=== PATIENT | female | born 1985 | race Caucasian/White ===

== ENCOUNTER 2017-11-04 09:45 | Emergency (ER) | payer OTHER, SELFPAY ==
[2017-11-04 09:46] VITALS: BP 135/80; PULSE 100; RESP 17; TEMP 37.2; O2SAT 99; BMI 35.2
--- NOTE | 2017-11-04 10:06 | CT_ITS ---
STUDY: CT ABDOMEN AND PELVIS WITHOUT CONTRAST REASON FOR EXAM: Female, 32 years old. Left upper quadrant pain. Epigastric pain. RADIATION DOSAGE (If Supplied By Facility): CTDIvol = ( 20.11 ) mGy, DLP = ( 1045.14 ) mGycm TECHNIQUE: Transaxial images were obtained from the dome of the diaphragm to the symphysis pubis with oral contrast, and without intravenous contrast. Sagittal and coronal images were reconstructed. Individualized dose optimization techniques were used for this CT. COMPARISON: None. FINDINGS: Mild degree of increased markings at the right lung base suggestive of mild basilar atelectasis. The visualized portions of the heart are within normal limits. Normal liver. Normal gallbladder and extrahepatic biliary system. Normal spleen. Normal pancreas. Normal bilateral adrenal glands. Normal right kidney. Normal left kidney. Normal visualized stomach. Mild degree of the circumferential wall thickening of the terminal ileum. Terminal ileitis should be ruled out. Normal colon. The appendix is visualized and appears normal. Normal abdominal aorta. Normal inferior vena cava. Normal retroperitoneum. Normal urinary bladder. Distended urinary bladder. Small amount of free fluid in the cul-de-sac. Small follicles are seen in the ovaries. Normal abdominal wall. Disc space narrowing and subchondral sclerosis at the L4-L5 level. CT/Abdomen/Pel W ORAL Cont Only IMPRESSION: Distended urinary bladder. Circumferential wall thickening of the terminal ileum. Terminal ileitis should be removed. Small amount of free fluid in the cul-de-sac. Electronically Signed: Rafat Modi MD at 12:23 EST Tel [phone], Service support ,
--- NOTE | 2017-11-04 10:10 | ED.VISSUMM ---
- ER Visit Summary Date of Service: 11/04/17 Chief Complaint: [] Abdominal pain History of Present Illness: The patient is a 32 F [] complaining of intermittent abdominal pain in the epigastric area. She reports she was diagnosed clinically with a gastric ulcer and started on Pepcid and Carafate. She reports this has intermittently helped her symptoms however she reports today her symptoms started with epigastric pain radiating to her left flank. She denies dark/tarry stools or bright red blood per rectum. She denies nausea and vomiting. No other complaints at this time. She denies the possibility of . Physical Examination: [] Afebrile, vital signs stable. Morbidly obese female in no acute distress. Cardiovascular exam is regular rate and rhythm. Lungs are clear to auscultation. Abdomen is soft and nontender with no guarding or rebound tenderness. She did localize her previous discomfort to the epigastric and left upper quadrant areas. She does also note some slight left flank discomfort. No lower extremity edema. Remainder of exam is unremarkable. Test Results: [] Labs: CBC, BMP, LFTs, lipase, troponin all within normal limits. CT abdomen/pelvis with oral contrast: Demonstrates circumferential terminal ileitis. Remainder of exam is unremarkable. Emergency Department Course and Treatment: [] Case was discussed with on-call GI specialist who recommended outpatient treatment with Cipro, Flagyl, narcotic analgesic and follow-up with him in the office. Patient was counseled regarding her diagnostic and laboratory findings. She is amenable to outpatient follow-up and treatment. She was given first doses of Cipro, Flagyl, Percocet in the emergency department with prescriptions provided for all of the previously listed plus Phenergan. 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 Disposition: [] Discharge, stable. Impression: [] Abdominal pain Terminal ileitis This note was generated with [employer] dictation software. It may contain incorrect words, spelling, and punctuation that were not noted in review of the chart prior to signing ED Disposition - Plan for ED Patient: Chief Complaint: Abd Pain Referrals: Cray aNgel PA [Primary Care Provider] -
--- NOTE | 2017-11-04 10:14 | ED.DCSUM_ITS ---
- ER Visit Summary Date of Service: 11/04/17 Chief Complaint: [] Abdominal pain History of Present Illness: The patient is a 32 F [] complaining of intermittent abdominal pain in the epigastric area. She reports she was diagnosed clinically with a gastric ulcer and started on Pepcid and Carafate. She reports this has intermittently helped her symptoms however she reports today her symptoms started with epigastric pain radiating to her left flank. She denies dark/tarry stools or bright red blood per rectum. She denies nausea and vomiting. No other complaints at this time. She denies the possibility of . Physical Examination: [] Afebrile, vital signs stable. Morbidly obese female in no acute distress. Cardiovascular exam is regular rate and rhythm. Lungs are clear to auscultation. Abdomen is soft and nontender with no guarding or rebound tenderness. She did localize her previous discomfort to the epigastric and left upper quadrant areas. She does also note some slight left flank discomfort. No lower extremity edema. Remainder of exam is unremarkable. Test Results: [] Labs: CBC, BMP, LFTs, lipase, troponin all within normal limits. CT abdomen/pelvis with oral contrast: Demonstrates circumferential terminal ileitis. Remainder of exam is unremarkable. Emergency Department Course and Treatment: [] Case was discussed with on-call GI specialist who recommended outpatient treatment with Cipro, Flagyl, narcotic analgesic and follow-up with him in the office. Patient was counseled regarding her diagnostic and laboratory findings. She is amenable to outpatient follow-up and treatment. She was given first doses of Cipro, Flagyl, Percocet in the emergency department with prescriptions provided for all of the previously listed plus Phenergan. Treatment Plan: [] Follow-up with account development executive. Disposition: [] Discharge, stable. Impression: [] Abdominal pain Terminal ileitis This note was generated with [employer] dictation software. It may contain incorrect words, spelling, and punctuation that were not noted in review of the chart prior to signing ED Disposition - Plan for ED Patient: Chief Complaint: Abd Pain Referrals: Cary Nagel PA [Primary Care Provider] -
[2017-11-04 10:22] LABS: Absolute Lymphocyte Count 1.89 X10^3/ul (0.83-4.51); Absolute Neutrophil Count 5.1 X10^3/uL (2.0-7.7); Basophil# 0.03 X10^3/uL; Basophil% 0.4 % (0-1); Eosinophil# 0.16 X10^3/uL; Eosinophils% 2.1 % (0-5); Hematocrit 40.1 % (37-47); Hemoglobin 13.5 g/dl (12.0-15.0); Lymphocyte # 1.89 X10^3/ul (4.0); Lymphocyte % 24.5 % (19-41); Mean Corp Hgb Conc 33.7 g/gl (32-36); Mean Corpuscular Hgb 30.4 pg (27.0-32.0); Mean Corpuscular Volume 90.3 fL (81-99); Mean Platelet Vol. 10.3 fl (6.2-12.0); Monocyte% 6.5 % (0-10); Neutrophil # 5.13 X10^3/uL (2.7-7.7); Neutrophil % 66.4 % (47-70); Platelet Count 281 K/mm3 (150-450); RBC Distribution Width CV 12.6 % (11.6-14.6); RBC Distribution Width SD 41.1 fl (35.1-43.9); Red Blood Count 4.44 M/mm3 (4.2-5.4); White Blood Count 7.7 K/mm3 (4.4-11.0)
[2017-11-04 10:25] LABS: POSITIVE COUNT NO; POSITIVE DIFFERENTIAL NO; POSITIVE MORPHOLOGY NO
[2017-11-04] MEDS: 0.9% Normal Saline 1,000 ML 1000 ML IV (10:25)
[2017-11-04 10:39] LABS: AST(SGOT) 14 U/L (15-37); Alanine Aminotransfer ALT/SGPT 36 U/L (13-56); Albumin, Serum 3.9 g/dL (3.2-5.0); Alkaline Phosphatase 81 U/L (45-117); Anion Gap 6 (5-15); BUN 11 mg/dL (7-18); BUN/Creat Ratio 18.4 RATIO (10-20); Calcium,Total 8.8 mg/dL (8.5-10.1); Chloride 106 mmol/L (98-107); EST Glomerular Filtration Rate 123 mL/min (>60); Est Glom Filt Rate - Afr Amer 149 mL/min (>60); Estimated Creatinine Clearance 124.85 ml/min; Globulin 3.8 g/dL (2.2-4.2); Glucose 85 mg/dL (74-106); Lipase 97 U/L (73-393); Potassium 3.8 mmol/L (3.5-5.1); Protein, Total 7.7 g/dL (6.4-8.2); Sodium Level 139 mmol/L (136-145)
[2017-11-04 13:00] VITALS: BP 115/76
--- NOTE | 2017-11-04 13:48 | ED.DEP ---
ED Disposition - Plan for ED Patient: Chief Complaint: Abd Pain Instructions: ED Abdominal Pain Unkn Cause Prescriptions: ProMETHAzine [Phenergan] 25 mg PO Q4H PRN PRN #20 tab PRN Reason: Nausea Oxycodone HCl/Acetaminophen [Percocet 5/325] 1 tab PO Q6H PRN PRN #15 tab PRN Reason: Pain Metronidazole [Flagyl] 500 mg PO Q8H #30 tab Ciprofloxacin [Cipro] 500 mg PO BID #20 tab Referrals: Cary Nagel PA [Primary Care Provider] -
[2017-11-04] MEDS: Ciprofloxacin 500 MG Tablet PO (14:48)
[2017-11-04] MEDS: oxyCODONE 5 MG Tablet PO (14:49)
[2017-11-04 14:53] VITALS: BP 138/74; PULSE 74; RESP 18; O2SAT 99
== END 2017-11-04 14:55 | disposition home or self-care (01) ==
LOC: ED 10:06
PROVIDERS: Emergency Provider Emergency Medicine; Family Provider Physician Assistant; PCP Physician Assistant
DX: R10.13 Epigastric pain (principal); R10.12 Left upper quadrant pain; K50.00 Crohn's disease of small intestine without complications; N80.9 Endometriosis, unspecified; E66.01 Morbid (severe) obesity due to excess calories; Z87.19 Personal history of other diseases of the digestive system; Z72.0 Tobacco use
CPT/HCPCS: 74176; 80053; 83690; 84484; 85025; 96361; 96374; 96375; 99284; J7030; A4216

== ENCOUNTER → 2018-03-22 07:57 | Outpatient (CLI) | payer OTHER, SELFPAY ==
[2018-03-22 09:11] LABS: Absolute Lymphocyte Count 2.31 X10^3/ul (0.83-4.51); Absolute Neutrophil Count 5.5 X10^3/uL (2.0-7.7); Basophil# 0.03 X10^3/uL; Basophil% 0.3 % (0-1); Eosinophil# 0.21 X10^3/uL; Eosinophils% 2.4 % (0-5); Hematocrit 40.4 % (37-47); Hemoglobin 13.5 g/dl (12.0-15.0); Lymphocyte # 2.31 X10^3/ul (4.0); Lymphocyte % 26.4 % (19-41); Mean Corp Hgb Conc 33.4 g/gl (32-36); Mean Corpuscular Hgb 30.2 pg (27.0-32.0); Mean Corpuscular Volume 90.4 fL (81-99); Mean Platelet Vol. 11.1 fl (6.2-12.0); Monocyte# 0.67 X10^3/uL; Monocyte% 7.7 % (0-10); Neutrophil # 5.51 X10^3/uL (2.7-7.7); POSITIVE COUNT NO; POSITIVE DIFFERENTIAL NO; POSITIVE MORPHOLOGY NO; Platelet Count 267 K/mm3 (150-450); RBC Distribution Width CV 12.6 % (11.6-14.6); RBC Distribution Width SD 41.5 fl (35.1-43.9); Red Blood Count 4.47 M/mm3 (4.2-5.4); White Blood Count 8.8 K/mm3 (4.4-11.0)
[2018-03-22 09:53] LABS: ALB/GLOB Ratio 1.1 RATIO (0.9-2.4); AST(SGOT) 16 U/L (15-37); Alanine Aminotransfer ALT/SGPT 36 U/L (13-56); Alkaline Phosphatase 78 U/L (45-117); Anion Gap 9 (5-15); BUN 11 mg/dL (7-18); BUN/Creat Ratio 16.4 RATIO (10-20); Calcium,Total 8.7 mg/dL (8.5-10.1); Chloride 104 mmol/L (98-107); Cholesterol 150 mg/dL (200); Creatinine, Serum 0.67 mg/dL (0.55-1.02); EST Glomerular Filtration Rate 108 mL/min (>60); Est Glom Filt Rate - Afr Amer 130 mL/min (>60); Globulin 3.8 g/dL (2.2-4.2); Glucose 80 mg/dL (74-106); High Density Lipoprotein 39 mg/dL; Potassium 3.8 mmol/L (3.5-5.1); Protein, Total 7.8 g/dL (6.4-8.2); Sodium Level 137 mmol/L (136-145); Thyroid Stim Hormone (TSH) 1.18 uIU/mL (0.358-3.74); Triglycerides 170 mg/dL; Very Low Density Lipoprotein 34 mg/dL (5-40)
== END ==
PROVIDERS: Family Provider Physician Assistant; PCP Physician Assistant; Visit Provider Physician Assistant
DX: E04.9 Nontoxic goiter, unspecified (principal); R00.2 Palpitations; Z13.1 Encounter for screening for diabetes mellitus; Z13.220 Encounter for screening for lipoid disorders
CPT/HCPCS: 36415; 80053; 80061; 84443; 85025

== ENCOUNTER → 2018-03-24 09:07 | Outpatient (CLI) | payer OTHER, SELFPAY | PROVIDERS: Family Provider Physician Assistant; PCP Physician Assistant; Visit Provider Physician Assistant | DX: R00.2 Palpitations (principal) | CPT/HCPCS: 93225; 93226 ==

== ENCOUNTER → 2018-12-22 16:24 | Outpatient (CLI) | payer OTHER, SELFPAY ==
--- NOTE | 2018-12-22 14:30 | US_ITS ---
STUDY: ULTRASOUND OF THE FEMALE PELVIS - COMPLETE REASON FOR EXAM: Female, 33 years old. Pelvic pain TECHNIQUE: Transabdominal and transvaginal (Transvaginal imaging, if present, was performed for enhanced visualization of uterus and endometrium, and posterior adnexal structures). COMPARISON: None. FINDINGS: Uterus anteverted, midline, 7.6 x 4.7 x 4.4 cm. Normal echotexture. Trace fluid within the endocervical canal. Endometrium 12.8 mm, normal echotexture. Slender fluid within the endometrial cavity of the fundus. Fundal endometrial cyst, 37 mm. Simple cystic features. Trace cul-de-sac free fluid. No adnexal free fluid. No adnexal mass or suspicious cyst. Right ovary 20 x 20 x 13 mm, left ovary 46 x 44 x 27 mm, each exhibiting appropriate vascularity, normal echotexture, small physiologic follicles. US/Transvaginal Non- IMPRESSION: Slender fluid within the endometrial canal and endocervical canal. Correlate for vaginal bleeding. Tiny fundal endometrial cyst 3.7 mm. Normal ovaries. Normal uterine myometrium. Electronically Signed: Morgan Monroe MD at 17:28 EDT Tel , Service support ,
--- NOTE | 2018-12-22 16:28 | US_ITS ---
STUDY: ULTRASOUND OF THE FEMALE PELVIS - COMPLETE REASON FOR EXAM: Female, 33 years old. Pelvic pain TECHNIQUE: Transabdominal and transvaginal (Transvaginal imaging, if present, was performed for enhanced visualization of uterus and endometrium, and posterior adnexal structures). COMPARISON: None. FINDINGS: Uterus anteverted, midline, 7.6 x 4.7 x 4.4 cm. Normal echotexture. Trace fluid within the endocervical canal. Endometrium 12.8 mm, normal echotexture. Slender fluid within the endometrial cavity of the fundus. Fundal endometrial cyst, 37 mm. Simple cystic features. Trace cul-de-sac free fluid. No adnexal free fluid. No adnexal mass or suspicious cyst. Right ovary 20 x 20 x 13 mm, left ovary 46 x 44 x 27 mm, each exhibiting appropriate vascularity, normal echotexture, small physiologic follicles. US/Pelvic (Non ) IMPRESSION: Slender fluid within the endometrial canal and endocervical canal. Correlate for vaginal bleeding. Tiny fundal endometrial cyst 3.7 mm. Normal ovaries. Normal uterine myometrium. Electronically Signed: Morgan Monroe MD at 17:28 EDT Tel , Service support ,
== END ==
PROVIDERS: Family Provider Physician Assistant; PCP Physician Assistant; Referring Provider Physician Assistant; Visit Provider Physician Assistant
DX: R10.2 Pelvic and perineal pain (principal)
CPT/HCPCS: 76830; 76856; 93976

== ENCOUNTER → 2020-02-02 09:07 | Outpatient (CLI) | payer OTHER, SELFPAY ==
[2020-02-02 08:33] VITALS: BMI 35.2
[2020-02-02 13:20] LABS: Hemoglobin A1c 5.4 % (3.8-5.6)
[2020-02-02 13:31] LABS: ALB/GLOB Ratio 1.1 RATIO (0.9-2.4); AST(SGOT) 19 U/L (15-37); Alanine Aminotransfer ALT/SGPT 38 U/L (13-56); Albumin, Serum 3.9 g/dL (3.2-5.0); Alkaline Phosphatase 76 U/L (45-117); Anion Gap 7 (5-15); BUN 12 mg/dL (7-18); BUN/Creat Ratio 17.3 RATIO (10-20); Calcium,Total 9.1 mg/dL (8.5-10.1); Chloride 107 mmol/L (98-107); Cholesterol 158 mg/dL (200); Creatinine, Serum 0.69 mg/dL (0.55-1.02); EST Glomerular Filtration Rate 102 mL/min (>60); Est Glom Filt Rate - Afr Amer 124 mL/min (>60); Globulin 3.6 g/dL (2.2-4.2); Glucose 95 mg/dL (74-106); High Density Lipoprotein 41 mg/dL; Potassium 3.8 mmol/L (3.5-5.1); Protein, Total 7.5 g/dL (6.4-8.2); Sodium Level 140 mmol/L (136-145); Thyroid Stim Hormone (TSH) 1.11 uIU/mL (0.358-3.74); Triglycerides 166 mg/dL; Very Low Density Lipoprotein 33 mg/dL (5-40)
[2020-02-05 00:26] LABS: Thyroid Peroxidase AB < 9 IU/mL (0-34)
== END ==
PROVIDERS: PCP Physician Assistant; Referring Provider Internal Medicine Endocrinology, Diabetes & Metabolism; Visit Provider Internal Medicine Endocrinology, Diabetes & Metabolism
DX: E04.9 Nontoxic goiter, unspecified (principal); E28.2 Polycystic ovarian syndrome; R73.09 Other abnormal glucose
CPT/HCPCS: 36415; 80053; 80061; 83036; 84439; 84443; 86376

== ENCOUNTER 2020-03-12 22:37 | Emergency (ER) | payer OTHER, SELFPAY ==
[2020-02-02 08:33] VITALS: BMI 35.2
[2020-03-12 22:37] VITALS: BP 117/94; PULSE 83; RESP 17; TEMP 36.7; O2SAT 97; BMI 34.7
--- NOTE | 2020-03-12 22:54 | ED.VIS.GEN ---
History of Present Illness Chief Complaint: Abd Pain Informant: Patient, Family Onset: Today Context: Gradual Onset Timing: Waxes and wanes Current Severity: Moderate Maximum Severity: Moderate Narrative: Patient presents secondary left-sided abdominal pain. She states she initially thought her reflux was acting up but now has pain throughout the left side. She states the pain feels like her prior diverticulitis. She has not had fever or chills. No urinary symptoms. - Past Medical History (1) Diverticulitis Status: Resolved (2) Anxiety Status: Chronic (3) Endometriosis Status: Chronic (4) GERD without esophagitis Status: Chronic (5) Hypothyroidism Status: Chronic (6) PCOS (polycystic ovarian syndrome) Status: Chronic Past Medical History - Allergies and Home Meds Allergies/Adverse Reactions: Allergies sulfamethoxazole [From ] Allergy (Verified 03/12/20 22:40) Hives trimethoprim [From ] Allergy (Verified 03/12/20 22:40) Hives Primary Care Physician: Cary Nagel PA [Primary Care Provider] - Prior records reviewed: Yes Lives: With Family Smoking Status: Current every day smoker Review of Systems General: Denies: Chills, Fever Eyes: Denies: Visual changes - bilaterally ENT: Denies: Bilateral ear pain Cardiovascular: Denies: Chest pain Respiratory: Denies: Dyspnea, Cough Gastrointestinal: Reports: Abdominal pain. Denies: Nausea, Vomiting, Diarrhea Genitourinary: Denies: Dysuria Musculoskeletal: Denies: Extremity Pain Skin: Denies: Rash Neurological: Denies: Headache Hematologic: Denies: Easy bruising Allergy: Denies: Uticaria Physical Exam Vital Signs/Narrative: Vital Signs Temp Pulse Resp BP Pulse Ox 03/12/20 22:37 98.1 F 83 17 117/94 H 97 Inital Vital Signs reviewed: Yes General: Well nourished, Well developed Head: Normocephalic ENT: Moist mucous membranes Neck: Supple Cardiovascular: Regular rate, Regular rhythm Respiratory: No distress, CTA bilaterally Abdomen: Soft, Tender - Mild left-sided tenderness to palpation. No guarding or rebound., Hypoactive bowel sounds Extremities: Nontender Skin: Normal color Neurological: Alert, Oriented x3 Psychological: Normal affect Diagnostic/Tx/Re-eval Impressions Abdomen/Pelvis CT 03/13/20 22:53 IMPRESSION: No acute findings in the abdomen or pelvis. Colon is grossly normal. Limited evaluation of the terminal ileum. Right ovarian cyst compatible with a physiologic cyst. No intra-abdominal free air free fluid collections. Electronically Signed: Torres Hallman MD at 1:20 EDT , Service support , 03/13/20 22:53 Abdomen/Pelvis WITH Contrast [CT] Stat Laboratory Results 03/12/20 03/12/20 03/12/20 23:04 23:04 23:04 WBC 9.6 RBC 4.19 L Hgb 12.7 Hct 38.9 MCV 92.8 MCH 30.3 MCHC 32.6 RDW Std Deviation 42.6 RDW Coeff of Kathy 12.8 Plt Count 270 MPV 10.3 Immature Gran % (Auto) 0.900 Neut % (Auto) 55.6 Lymph % (Auto) 34.1 Rolette % (Auto) 6.9 Eos % (Auto) 2.1 Baso % (Auto) 0.4 Absolute Neuts (auto) 5.3 Absolute Lymphs (auto) 3.27 Nucleated RBC % 0 Sodium 139 Potassium 3.8 Chloride 105 Carbon Dioxide 26.0 Anion Gap 8 BUN 12 Creatinine 0.67 Estim Creat Clear Calc 109.71 Est GFR (MDRD) Af Amer 129 Est GFR (MDRD) Non-Af 107 BUN/Creatinine Ratio 18.0 Glucose 96 Calcium 8.9 Total Bilirubin 0.30 Direct Bilirubin 0.15 AST 14 L ALT 36 Alkaline Phosphatase 80 Total Protein 7.4 Albumin 3.9 Globulin 3.5 Lipase 68 L Serum , Qual NEGATIVE - Medical Decision Making Patient was given morphine and Zofran for pain. On repeat evaluation she is resting comfortably. She is still complaining of burning-like pain in the left upper quadrant. She is now questioning whether she may have an ulcer. She does admit to using ibuprofen. She recently switched to Pepcid instead of Zantac. We will give her a GI cocktail this time and write her for a short course of Protonix. She will use Tylenol instead of ibuprofen at home. She is known to Dr. Black and will follow-up with him as needed. ED Disposition - Plan for ED Patient: Disposition: Home or Assisted Living Diagnosis: Abdominal pain Instructions: ED Abdominal Pain Unkn Cause Fem Prescriptions: Pantoprazole Sodium [Protonix] 40 mg PO DAILY #10 tab Transmission Status: Pending to [id number] Referrals: Cary Nagel PA [Primary Care Provider] - Garry Black MD [NON-STAFF] - As Needed
[2020-03-12] MEDS: 0.9% Normal Saline 1,000 ML 150 ML IV (23:09)
[2020-03-12] MEDS: Ondansetron 4 MG/2 ML Vial IV (23:10)
[2020-03-12] MEDS: Morphine 4 MG/ML Syringe IV (23:10)
[2020-03-12 23:23] LABS: Internal QC Validated? YES +Cl - CLEAR BKGD; Pregnancy, Serum, hCG Quali. NEGATIVE Negative
[2020-03-12 23:27] LABS: AST(SGOT) 14 U/L (15-37); Alanine Aminotransfer ALT/SGPT 36 U/L (13-56); Albumin, Serum 3.9 g/dL (3.2-5.0); Alkaline Phosphatase 80 U/L (45-117); Anion Gap 8 (5-15); BUN 12 mg/dL (7-18); Bilirubin, Direct 0.15 mg/dL (0.00-0.30); Calcium,Total 8.9 mg/dL (8.5-10.1); Chloride 105 mmol/L (98-107); Creatinine, Serum 0.67 mg/dL (0.55-1.02); EST Glomerular Filtration Rate 107 mL/min (>60); Est Glom Filt Rate - Afr Amer 129 mL/min (>60); Estimated Creatinine Clearance 109.71 ml/min; Globulin 3.5 g/dL (2.2-4.2); Glucose 96 mg/dL (74-106); Lipase 68 U/L (73-393); Potassium 3.8 mmol/L (3.5-5.1); Protein, Total 7.4 g/dL (6.4-8.2); Sodium Level 139 mmol/L (136-145)
[2020-03-12 23:35] LABS: Absolute Lymphocyte Count 3.27 X10^3/uL (0.83-4.51); Absolute Neutrophil Count 5.3 X10^3/uL (2.0-7.7); Basophil# 0.04 X10^3/uL; Basophil% 0.4 % (0-1); Eosinophils% 2.1 % (0-5); Hematocrit 38.9 % (37-47); Hemoglobin 12.7 g/dL (12.0-15.0); Lymphocyte # 3.27 X10^3/ul (4.0); Lymphocyte % 34.1 % (19-41); Mean Corp Hgb Conc 32.6 g/dL (32-36); Mean Corpuscular Hgb 30.3 pg (27.0-32.0); Mean Corpuscular Volume 92.8 fL (81-99); Mean Platelet Vol. 10.3 fl (6.2-12.0); Monocyte# 0.66 X10^3/uL; Monocyte% 6.9 % (0-10); NRBC Flagged by Analyzer 0 % (0-5); Neutrophil # 5.32 X10^3/uL (2.7-7.7); Neutrophil % 55.6 % (47-70); Platelet Count 270 K/mm3 (150-450); RBC Distribution Width CV 12.8 % (11.6-14.6); RBC Distribution Width SD 42.6 fl (35.1-43.9); Red Blood Count 4.19 M/mm3 (4.2-5.4); White Blood Count 9.6 K/mm3 (4.4-11.0)
[2020-03-13 01:33] VITALS: BP 124/72; PULSE 77; RESP 16; O2SAT 99
[2020-03-13] MEDS: Pantoprazole Sodium 40 MG Tablet PO (01:36)
[2020-03-13] MEDS: Mag Hydrox/Al Hydrox/Simeth 30 ML UDC PO (01:37)
[2020-03-13 01:40] VITALS: BP 124/72; PULSE 77; RESP 16; O2SAT 99
--- NOTE | 2020-03-13 22:53 | CT_ITS ---
STUDY: CT ABDOMEN AND PELVIS WITH CONTRAST REASON FOR EXAM: Female, 34 years old. Left-sided abdominal pain, history of diverticulitis and endometriosis. test negative. RADIATION DOSAGE (If Supplied By Facility): CTDIvol = ( 16.67 ) mGy, DLP = ( 1218.70 ) mGycm TECHNIQUE: Transaxial images were obtained from the dome of the diaphragm to the symphysis pubis with oral contrast. Oral and amp; IV Gastrografin and amp; 100mL Isovue-370 was administered. Sagittal and coronal images were reconstructed. Individualized dose optimization techniques were used for this CT. COMPARISON: November 04, 2017. FINDINGS: The visualized lung bases are unremarkable. The visualized portions of the heart are within normal limits. Normal liver. Normal gallbladder and extrahepatic biliary system. Normal spleen. Normal pancreas. Normal bilateral adrenal glands. Normal right kidney. Normal left kidney. Normal visualized stomach. Oral contrast opacification of the mid small bowel. Terminal ileum not distended or opacified with oral contrast limiting evaluation. Normal colon. Left colon well visualized and is normal. The appendix is well visualized and appears normal. Normal abdominal aorta. Normal inferior vena cava. Normal retroperitoneum. No intra-abdominal free air. Normal urinary bladder. Uterus grossly normal. 2.2 cm right ovarian cyst. Normal abdominal wall. Multilevel disc space narrowing in the lower lumbar spine. CT/Abdomen/Pelvis WITH Contrast IMPRESSION: No acute findings in the abdomen or pelvis. Colon is grossly normal. Limited evaluation of the terminal ileum. Right ovarian cyst compatible with a physiologic cyst. No intra-abdominal free air free fluid collections. Electronically Signed: Torres Hallman MD at 1:20 EDT , Service support ,
== END 2020-03-13 01:41 | disposition home or self-care (01) ==
PROVIDERS: Emergency Provider Emergency Medicine; PCP Physician Assistant
DX: R10.12 Left upper quadrant pain (principal); F41.9 Anxiety disorder, unspecified; N80.9 Endometriosis, unspecified; K21.9 Gastro-esophageal reflux disease without esophagitis; E28.2 Polycystic ovarian syndrome; Z79.899 Other long term (current) drug therapy; F17.200 Nicotine dependence, unspecified, uncomplicated
CPT/HCPCS: 74177; 80048; 80076; 83690; 84703; 85025; 96361; 96374; 96375; 99284; J7030; Q9967; A4216; J2405

== ENCOUNTER → 2020-08-27 10:05 | Outpatient (CLI) | payer OTHER, SELFPAY | PROVIDERS: PCP Physician Assistant; Visit Provider Physician Assistant | DX: R00.0 Tachycardia, unspecified (principal) | CPT/HCPCS: 93225; 93226 ==

== ENCOUNTER 2020-10-29 07:48 | Emergency (ER) | payer OTHER, SELFPAY ==
[2020-10-29 07:50] VITALS: BP 156/87; PULSE 99; RESP 20; TEMP 36.3; O2SAT 100; BMI 35.1
--- NOTE | 2020-10-29 08:02 | CT_ITS ---
STUDY: CT ABDOMEN AND PELVIS WITH CONTRAST REASON FOR EXAM: Female, 35 years old. Left flank pain, abdomen pain, hx diverticulitis, endometriosis, PCOS, UTI. Prior exploratory laproscopy. RADIATION DOSAGE (If Supplied By Facility): CTDIvol = ( 18.00 ) mGy, DLP = ( 1229.01 ) mGycm TECHNIQUE: Transaxial images were obtained from the dome of the diaphragm to the symphysis pubis without oral contrast. was administered. Sagittal and coronal images were reconstructed. Individualized dose optimization techniques were used for this CT. COMPARISON: Comparison is made with prior study dated 03/13/2020. FINDINGS: The visualized lung bases are unremarkable. The visualized portions of the heart are within normal limits. There is decreased attenuation of the liver consistent with steatosis. Normal gallbladder and extrahepatic biliary system. Normal spleen. Normal pancreas. Normal bilateral adrenal glands. Normal right kidney. Normal left kidney. Normal visualized stomach. Normal small intestine. Normal colon. The appendix is visualized and appears normal. Normal abdominal aorta. Normal inferior vena cava. Normal retroperitoneum. Normal urinary bladder. Small follicles are seen in the right ovary. Normal abdominal wall. Normal osseous structures. CT/Abdomen/Pelvis W IV Cont ONLY IMPRESSION: Small follicles are seen in the right ovary. Electronically Signed: Rafat Modi MD at 9:36 EST , Service support ,
--- NOTE | 2020-10-29 08:04 | ED.DCSUM_ITS ---
- ER Visit Summary Date of Service: 10/29/20 Chief Complaint: Flank pain History of Present Illness: The patient is a 35 F 3 of reflux, diverticulitis, hypertension, tachycardia, endometriosis for which she has had several exploratory laparoscopies and laparotomies. Patient states that yesterday she had some diarrhea. Mild nausea. And left flank pain. She says an aching pain that gets more intense at times. No vomiting. No dysuria. No hematuria. History of a prior stone in her kidney but no acute ureteral calculi in the past. She denies any fever or chills. No trauma. Physical Examination: Well-appearing 35-year-old female. Vital signs are stable and afebrile. H EENT exam unremarkable. Lungs clear to auscultation bilaterally. Heart regular rhythm rate about 90 no murmur. Abdomen soft nontender normal bowel sounds no peritoneal signs. Back nontender. She com plains of some mild discomfort in the left posterior lower ribs. There is no ecchymosis or bruising. No signs of trauma. No subcu air. Spine nontender. Patient is moving all 4 extremities. Neurovascular intact. Normal range of motion. No edema. Neurologically she is awake alert with no focal motor deficits. Test Results: CBC normal white count of 9 and hemoglobin 13. No bands. Chemistries normal normal creatinine and gap. UA 5-10 white cells otherwise no signs of infection. No blood no bacteria and no nitrates. Urine test negative. CT flank study showed a small right ovarian follicle otherwise no acute abnormality. Read by the radiologist and reviewed by me. Repeat exam patient is doing well at 9:59 AM and be discharged home. I went over all test results with her. Emergency Department Course and Treatment: Patient initially does not want anything for pain or nausea. CAT scan with IV contrast to be obtained due to her history of diverticulitis. Currently her exam is benign. She is reportedly had diverticulitis twice in the past treated with oral antibiotics. She also had another episode where it was felt to be secondary to musculoskeletal pain. Labs and urinalysis are also being obtained. Treatment Plan: Motrin for pain. Follow-up as needed. Disposition: discharge Impression: Acute left flank pain of uncertain etiology History of prior diverticulitis This note was generated with [employer] software. It may contain incorrect words, spelling, and punctuation that were not noted in review of the chart prior to signing ED Disposition - Plan for ED Patient: Referrals: Cary Nagel, PA [Primary Care Provider] -
[2020-10-29 08:18] LABS: Absolute Lymphocyte Count 2.15 X10^3/uL (0.83-4.51); Basophil# 0.04 X10^3/uL; Basophil% 0.4 % (0-1); Eosinophil# 0.19 X10^3/uL; Eosinophils% 2.1 % (0-5); Hematocrit 41.8 % (37-47); Hemoglobin 13.1 g/dL (12.0-15.0); Lymphocyte # 2.15 X10^3/ul (4.0); Lymphocyte % 23.8 % (19-41); Mean Corp Hgb Conc 31.3 g/dL (32-36); Mean Corpuscular Hgb 28.8 pg (27.0-32.0); Mean Corpuscular Volume 91.9 fL (81-99); Mean Platelet Vol. 10.1 fl (6.2-12.0); Monocyte# 0.69 X10^3/uL; Monocyte% 7.6 % (0-10); NRBC Flagged by Analyzer 0 % (0-5); Neutrophil # 5.95 X10^3/uL (2.7-7.7); Neutrophil % 65.8 % (47-70); Platelet Count 299 K/mm3 (150-450); RBC Distribution Width CV 12.1 % (11.6-14.6); RBC Distribution Width SD 41.1 fl (35.1-43.9); Red Blood Count 4.55 M/mm3 (4.2-5.4); White Blood Count 9.1 K/mm3 (4.4-11.0)
[2020-10-29 08:18] LABS: Bacteria 0 SEEN /hpf (None Seen); Mucous, Urine 0 SEEN /hpf (<or=2+); Red Blood Cells-Urine 0 SEEN /hpf (0-5)
[2020-10-29 08:21] LABS: Glucose, Dipstick Normal (Normal); Ketone-Dipstick Negative (Negative); Leukocyte Esterase-Dipstick 500 /ul (Negative); Nitrite-Dipstick Negative (Negative); Occult Blood-Urine Negative /ul (Negative); Protein-Dipstick Negative (Negative); Urine Bilirubin Dipstick Negative (Negative); Urine Urobilinogen Normal (Normal); Urine pH 6.5 (5.0 - 8.0)
[2020-10-29 08:31] LABS: Anion Gap 5 (5-15); BUN 11 mg/dL (7-18); Calcium,Total 9.3 mg/dL (8.5-10.1); Chloride 106 mmol/L (98-107); Creatinine, Serum 0.69 mg/dL (0.55-1.02); EST Glomerular Filtration Rate 102 mL/min (>60); Est Glom Filt Rate - Afr Amer 124 mL/min (>60); Estimated Creatinine Clearance 105.52 ml/min; Glucose 96 mg/dL (74-106); Potassium 3.8 mmol/L (3.5-5.1); Sodium Level 138 mmol/L (136-145)
[2020-10-29 08:41] LABS: Color, Urine Yellow (Yellow); Urine Clarity Sl. Cloudy (Clear)
[2020-10-29 08:42] LABS: Internal QC Validated? YES +Cl - CLEAR BKGD; Pregnancy, Urine Negative Negative
[2020-10-29 08:50] LABS: Squamous Epithelial Cells - UA 0-5 SEEN /hpf (5-10)
[2020-10-29 08:52] LABS: White Blood Cells 5-10 SEEN /hpf (0-5)
--- NOTE | 2020-10-29 10:01 | ED.DEP ---
ED Disposition - Plan for ED Patient: Disposition: Home or Assisted Living Instructions: ED Flank Pain, Uncertain Cause Referrals: Cary Nagel PA [Primary Care Provider] - 3-5 Days if not improving Additional Instructions: Test results are unremarkable. Your CAT scan showed no acute abnormality. Tylenol and/or Motrin for pain. Follow-up if not improving. Return emergency department if feeling worse
== END 2020-10-29 10:08 | disposition home or self-care (01) ==
PROVIDERS: Emergency Provider Emergency Medicine; PCP Physician Assistant
DX: R10.9 Unspecified abdominal pain (principal); R19.7 Diarrhea, unspecified; R11.0 Nausea; I10 Essential (primary) hypertension; K21.9 Gastro-esophageal reflux disease without esophagitis; Z87.442 Personal history of urinary calculi; Z87.19 Personal history of other diseases of the digestive system; Z79.899 Other long term (current) drug therapy; F17.200 Nicotine dependence, unspecified, uncomplicated
CPT/HCPCS: 74177; 80048; 81001; 81025; 85025; 87086; 87088; 96360; 96361; 99284; J7040; Q9967; A4216

== ENCOUNTER → 2021-02-14 08:57 | Outpatient (CLI) | payer OTHER, SELFPAY ==
[2021-02-14 08:20] VITALS: BMI 35.1
[2021-02-14 12:32] LABS: Cholesterol 167 mg/dL (200); High Density Lipoprotein 41 mg/dL; Thyroid Stim Hormone (TSH) 0.95 uIU/mL (0.358-3.74); Triglycerides 127 mg/dL; Very Low Density Lipoprotein 25 mg/dL (5-40)
[2021-02-15 10:04] LABS: Thyroid Peroxidase AB < 9 IU/mL (0-34)
== END ==
PROVIDERS: PCP Physician Assistant; Referring Provider Internal Medicine Endocrinology, Diabetes & Metabolism; Visit Provider Internal Medicine Endocrinology, Diabetes & Metabolism
DX: E01.0 Iodine-deficiency related diffuse (endemic) goiter (principal); K76.0 Fatty (change of) liver, not elsewhere classified
CPT/HCPCS: 36415; 80061; 84443; 86376

== ENCOUNTER 2021-10-16 11:23 | Outpatient (CLI) | payer OTHER, SELFPAY ==
[2021-10-21 17:04] LABS: HPV APTIMA, High Risk Negative (Negative)
== END 2021-10-16 23:59 | disposition home or self-care (01) ==
LOC: LABSPEC 11-20 11:23
PROVIDERS: PCP Physician Assistant; Visit Provider Obstetrics & Gynecology
DX: Z12.4 Encounter for screening for malignant neoplasm of cervix (principal)
CPT/HCPCS: 87624; 88175; G0145

== ENCOUNTER 2021-10-23 13:32 | Outpatient (CLI) | payer OTHER, SELFPAY ==
--- NOTE | 2021-10-23 11:45 | EMB_PTH ---
PATIENT: TEJ IBARRA LOC: [facility] #:[id number] AGE/SX: 36/F ROOM: RE10/23/[address]: Dr. Regina Quesada DO : 1985 BED: DIS: 10/23/2021 SPEC #: [id number] RECD: 10/23/21 13:20 STATUS: LARA OCONNOR #: [id number] PATRICA: 10/23/21 11:[address]: Regina Quesada DEPT: SURGICAL PATHOLOGY RECD BY: Dayo López ENTERED: 10/24/21 09:36 SP TYPE: ENDOM BX/C JHOANAHR DR: KALINA Jonas Tissues: Endometrium, NOS Procedures: Surgery Specimen Level IV HEADER OPERATION: Endometrial biopsy PRE-OP DIAGNOSIS: Heavy periods TISSUE SUBMITTED: Endometrial lining MICROSCOPIC DIAGNOSIS Endometrium, biopsy: Transition endometrium with predominantly secretory change. AM:deb 10/28/2021 MICROSCOPIC DESCRIPTION Slides are reviewed. GROSS DESCRIPTION Received is one container labeled with the patient's name and not further designated. The specimen consists of multiple irregular fragments of ogden-pink soft tissue that in aggregate measure 3 x 2.5 x 0.2 cm. The specimen is totally submitted in one cassette. / SJ:deb 10/24/2021 TC:5 CPT: 78222
== END 2021-10-23 23:59 | disposition home or self-care (01) ==
LOC: LABSPEC 13:34
PROVIDERS: PCP Physician Assistant; Visit Provider Obstetrics & Gynecology
DX: N92.0 Excessive and frequent menstruation with regular cycle (principal)
CPT/HCPCS: 88305

== ENCOUNTER 2021-11-11 10:31 | Day surgery (SDC) | payer OTHER, SELFPAY ==
[2021-11-11] VITALS (7 sets, daily range): BP systolic 102–121; BP diastolic 64–76; PULSE 74–90; RESP 15–18; TEMP 36.4–36.5; O2SAT 97–100; BMI 35.8
--- NOTE | 2021-11-11 07:23 | HP.PCM_ITS ---
History and Physical Date of Admission: 11/11/21 Date of Service: 10/23/21 MR#:[id number]:[id number]: TEJ IBARRA [facility] #:[id number]:1985 Provider:Dr. 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: No Is patient in pain?: No Allergies sulfamethoxazole [From ] Allergy (Verified 10/23/21 11:33) Hives trimethoprim [From ] Allergy (Verified 10/23/21 11:33) Hives Medications rizatriptan 10 mg PO .X1 PRN PRN 01/26/14 [History Confirmed 10/23/21] lorazepam 0.5 mg tablet 0.5 mg PO DAILY PRN 02/02/20 [History Confirmed 10/23/21] lisinopril 5 mg tablet 5 mg PO DAILY tab 10/24/20 [History Confirmed 10/23/21] omeprazole 20 mg capsule,delayed release 20 mg PO DAILY 10/24/20 [History Confirmed 10/23/21] ascorbate calcium (vitamin C) 500 mg tablet 500 mg PO DAILY 10/16/21 [History Confirmed 10/23/21] cholecalciferol (vitamin D3) 50 mcg (2,000 unit) capsule 50 mcg PO DAILY 10/16/21 [History Confirmed 10/23/21] zinc sulfate 50 mg zinc (220 mg) capsule 50 mg PO DAILY 10/16/21 [History Confirmed 10/23/21] Post menopausal: No Patient : No : No PFSH PFSH Medical History Acute epigastric pain Anxiety Endometriosis Fatty liver GERD without esophagitis HTN (hypertension) Hypothyroidism Intermittent dysphagia Migraine without aura, intractable, without status migrainosus Palpitation PCOS (polycystic ovarian syndrome) Thyromegaly Surgical History S/P exploratory laparotomy S/P laparoscopic procedure Family History Father Arthritis Diabetes Heart disease High cholesterol Sister Thyroid disorder Social History Smoking Status: Current every day smoker second hand exposure: Yes alcohol intake: never substance use type: does not use caffeine: Yes what type of physical activity do you participate in: none frequency: does not exercise seatbelt use: always do you feel safe at home: Yes additional social history: - [employer] History 1 Elective abortions Hx Para 1 Spontaneous abortions Hx # Term Pregnancies Ectopic pregnancies Hx # Pregnancies Multiple births # of living children Past Pregnancies Del. Date Name GA/Weeks Outcome Route Bth Weight [facility] Carrol HPI EMB Details: TEJ IBARRA is a 36 year old who presents for emb prior to ablation procedure. We have discussed the risks, benefits, and alternative therapies and she would like to proceed with keon ablation. ROS Const ROS Unobtainable: All systems reviewed & are unremarkable except as noted in H Resp Resp: Reports system reviewed and no additional complaints, except as docum ented; Denies cough GI GI: Reports as per HPI Psych Psych: Reports system reviewed and no additional complaints, except as documented Exam Const General: cooperative, healthy appearing, comfortable and no acute distress Resp Effort & Inspection: normal respiratory effort General: bimanual renal exam normal bilaterally External Female Exam: normal appearance of the urethra Urethra: normal appearance of the urethra Speculum Exam - Vagina: normal appearance of the vagina Speculum Exam - Cervix: normal appearance of the cervix Bimanual Exam- Adnexa, other: normal adnexae and normal Pelvic Support: normal Skin General: no rashes or lesions noted Psych Appearance: grossly normal Speech and Movement: speech and movement normal Office Procedures Endometrial Biopsy Endometrial Biopsy Test: Yes Negative Consent Signed: Yes Time out checklist: patient tenaculum used: No dilator used: No Details: Cervix prepped with betadine and pipelle inserted into uterus without complication. Specimen obtained and sent to lab for analysis. All instruments removed from vagina without complications. Excellent hemostasis noted. Coding Level of Care Code No Charge Diagnoses Endometriosis N80.9 Menorrhagia N92.0 CPT Codes Endometrial Biopsy (25728) Assessment and Plan Assessment and Plan (1) Endometriosis: Status: Chronic (2) Menorrhagia: Status: Acute Orders: Orders: Endometrial Biopsy Today Plan - Dr. Regina Quesada, DO: EMB done today, plan to proceed with keon ablation. ultrasound was normal. UPDATE- I have seen the patient and performed any clinically relevant updates to the history and physical exam. Regina Quesada DO
[2021-11-11 11:00] LABS: Internal QC Validated? YES +Cl - CLEAR BKGD
[2021-11-11 11:03] LABS: Pregnancy, Urine Negative Negative
[2021-11-11 11:10] LABS: Hematocrit 39.1 % (37-47); Hemoglobin 13.1 g/dL (12.0-15.0); Mean Corp Hgb Conc 33.5 g/dL (32-36); Mean Corpuscular Hgb 30.4 pg (27.0-32.0); Mean Corpuscular Volume 90.7 fL (81-99); Mean Platelet Vol. 10.3 fl (6.2-12.0); Platelet Count 267 K/mm3 (150-450); RBC Distribution Width CV 12.7 % (11.6-14.6); RBC Distribution Width SD 41.9 fl (35.1-43.9); Red Blood Count 4.31 M/mm3 (4.2-5.4); White Blood Count 7.8 K/mm3 (4.4-11.0)
[2021-11-11] MEDS: Lactated Ringers 1,000 ML 125 ML IV (11:15)
[2021-11-11] MEDS: Lidocaine 1% (20 ml mdv) 20 ML Vial (12:33)
--- NOTE | 2021-11-11 12:50 | PCM.OPRPT ---
Problems Associated Problem List Diagnoses (1) Menorrhagia: (2) Endometriosis: Report of Operation Date of Procedure: 11/11/21 Pre-Operative Diagnosis: menorrhagia Post-Operative Diagnosis: menorrhagia Surgery/Procedure Performed:: hysteroscopy, nieves endometrial ablation Description of Surgical Findings:: normal uterus, cervix, vagina Surgeon: Regina Quesada estate planning paralegal: None Type of Anesthesia: MAC and Topical Anesth Specimen's removed: none Drains: none Estimated Blood Loss (mL): 0 Fluids Replaced: 700cc Description of Procedure: Patient was prepped and draped in a normal sterile fashion under MAC anesthesia. A weighted speculum was placed in the vagina and the anterior lip of the cervix was grasped with a single-tooth tenaculum. A paracervical block was placed with 1% lidocaine. Cervix was progressively dilated to allow passage of a 5 mm hysteroscope. The lining was fully visualized and noted to have . Uterine sounded to 8.5 cm. The Nieves device was opened and the cavity length was found to be 5 cm. Device was inserted into the uterus and balloon inflated and device deployed. Integrity of the cavity was confirmed and a 2 minute treatment cycle was completed without complication. All instruments were removed from the vagina and excellent hemostasis was noted. Patient was awoken and taken to recovery in stable condition. Complications none Admit VTE Documentation VTE Present on Admission: Yes VTE Mechan Device Prophylaxis: SCD's VTE Pharm Prophylaxis ordered?: No Reason prophylaxis not ordered:: Procedure Not Indicated Multi Select Codes Urinary/Genital Urinary/Genital CPT Codes: 89302 Nieves/Novasure
--- NOTE | 2021-11-11 12:52 | PCM.DC ---
Discharge Instructions Diet Discharge Diet: No restrictions Activity Discharge Activity: Return to Normal Activity, May Shower and May Take a Tub Bath (after 1 week) May resume sexual activity in: 1-2 weeks Weight Bearing Status: Weight bearing as tolerated Lifting Restrictions: none Dressing / Incision Call your doctor if you observe: Fever of 101 or Higher, Using more than 1 pad per hour, Shortness of breath and Uncontrolled pain Follow Up Care Please Follow Up With: Regina Quesada DO When: Call [phone] to schedule appointment. Test Results: Test results from this visit will be discussed in further detail at your follow-up appointment, if applicable. Discharge Plan Admission Primary Reason for Your Visit: endometrial ablation Attending Provider: Regina Quesada Primary Care Provider: Cary Nagel Instructions Patient Instructions: Endometrial Ablation Discharge Orders/Prescriptions Prescriptions: New ibuprofen 800 mg tablet 800 mg PO Q8H PRN (Reason: pain) 7 Days Qty: 30 RF: 0 oxycodone-acetaminophen [Percocet] 5-325 mg tablet 1 tab PO Q4H PRN (Reason: pain) 3 Days Qty: 8 RF: 0 Continued lorazepam 0.5 mg tablet 0.5 mg PO DAILY PRN (Reason: Anxiety) RF: 0 lisinopril 5 mg tablet 5 mg PO DAILY RF: 0 ascorbate calcium (vitamin C) 500 mg tablet 1,000 mg PO DAILY RF: 0 cholecalciferol (vitamin D3) 50 mcg (2,000 unit) capsule 50 mcg PO DAILY RF: 0 rizatriptan 10 MG tablet 10 mg PO .X1 PRN PRN (Reason: Migraine Symptoms) RF: 0 famotidine [Pepcid AC] 10 mg Tablet 10 mg PO DAILY RF: 0 Referrals / Follow Up: Cary Nagel PA [Primary Care Provider] - Disposition Disposition (needs filled in before D/C Order can be placed): Home, Self Care
== END 2021-11-11 23:59 | disposition home or self-care (01) ==
LOC: SDC 10:32 → AC 10:34
PROVIDERS: Anesthesiology; PCP Physician Assistant; Referring Provider Obstetrics & Gynecology; Visit Provider Obstetrics & Gynecology
PROC: 0UDB8ZZ Extraction of Endometrium, Via Natural or Artificial Opening Endoscopic (ICD-10-PCS; CPT 58558; principal; 2021-11-11 11:40)
DX: N92.0 Excessive and frequent menstruation with regular cycle (principal); N80.9 Endometriosis, unspecified; F17.200 Nicotine dependence, unspecified, uncomplicated; I10 Essential (primary) hypertension; K76.0 Fatty (change of) liver, not elsewhere classified; F41.9 Anxiety disorder, unspecified; K21.9 Gastro-esophageal reflux disease without esophagitis; E03.9 Hypothyroidism, unspecified; E28.2 Polycystic ovarian syndrome; Z79.899 Other long term (current) drug therapy
CPT/HCPCS: 58563; 81025; 85027; 86850; 86900; 86901; J7120; J2405

== ENCOUNTER → 2023-06-02 | Outpatient (CLI) | payer OTHER, SELFPAY | END | disposition home or self-care (01) | LOC: LABSPEC 10:31 | PROVIDERS: PCP Physician Assistant; Referring Provider Dermatology; Visit Provider Dermatology | DX: L30.9 Dermatitis, unspecified (principal); L73.2 Hidradenitis suppurativa | CPT/HCPCS: 87070; 87077; 87186; 87205 ==

== ENCOUNTER → 2023-09-02 | Outpatient (CLI) | payer OTHER, SELFPAY ==
--- NOTE | 2023-09-02 12:30 | BRBX_PTH ---
PATHOLOGY RESULTS PATIENT: TEJ IBARRA LOC: [facility] #:[id number] AGE/SX: 37/F ROOM: RE09/02/[address]: Dr. Enedina Norman MD : 1985 BED: DIS: 09/02/2023 SPEC #: [id number] RECD: 09/03/23 06:48 STATUS: LARA REVandana #: [id number] PATRICA: 09/02/23 12:[address]: Enedina Norman DEPT: SURGICAL PATHOLOGY RECD BY: Michelle Aguilar ENTERED: 09/03/23 06:48 SP TYPE: BREAST BX OTHR DR: KALINA Jonas Tissues: Left breast, NOS Procedures: Surgery Specimen Level IV Comments: @ Specimen number changed from [id number] to [id number] @ on 09/03/23 at 0654 by MYAH. HEADER OPERATION: Left breast mass biopsy PRE-OP DIAGNOSIS: Left breast mass, likely fibroadenoma TISSUE SUBMITTED: Left breast 3 o'clock, 3.0 cm from nipple MICROSCOPIC DIAGNOSIS Left breast at 3 o'clock, core biopsy: Consistent with fibroadenoma. AM:deb 09/07/2023 COMMENT This case was discussed with Dr. Norman on 09/07/2023. MICROSCOPIC DESCRIPTION Slides are reviewed. GROSS DESCRIPTION Received in fixative is one container labeled with the patient's name and designated left breast. The specimen consists of multiple elongated fragments of ogden-yellow fibroadipose tissue that in aggregate measure 1.5 x 0.2 x 0.3 cm. The entire specimen is submitted in one cassette. / SJ:deb 09/03/2023 TC:5 Ischemic Time: 1 minute Fixation Time: 79 hours CPT: 45528
--- OUTSIDE RECORDS SUMMARY | 2023-09-02 16:16 | XMS RPT_ITS | CCD ---
Author Name Unknown Address [address] [place] [address] Organization [facility] Care Team Providers Care Financial Systems Director Name Role Phone NAGEL, ANITHA J Unavailable Unavailable RAYMUNDO JEAN BAPTISTE Unavailable Unavailable NAGEL, ANITHA A Unavailable Unavailable EMIGDIO WELLS Unavailable Unavailab Evelin Gonzalez PA-C Unavailable [phone] EVELIN JALLOH Admitting Unavailable EVELIN JALLOH Attending Unavailable NAGEL, ANITHA J Consulting Unavailable NAGEL, ANITHA J Attending Unavailable NAGEL, ANITHA J Referring Unavailable NAGEL, ANITHA J Admitting Unavailable NAGEL, ANITHA J Primary Care Unavailable PROVIDER, UNKNOWN Consulting Unavailable NAGEL, ANITHA J Consulting Unavailable NAGEL, ANITHA J Attending Unavailable NAGEL, ANITHA J Admitting Unavailable NAGEL, ANITHA J Primary Care Unavailable PROVIDER, UNKNOWN Consulting Unavailable Robe SHIRLEY, Anitha J Unavailable Robe SHIRLEY Anitha J Unavailable Endocrinology Provider Unavailable Unavailab le [facility] Unavailable Orthopedic Provider Unavailable Unavailable [facility], . Unavailable [facility] Unavailable Counseling Provider Unavailable Unavailable Podiatry Provider Unavailable Unavailable Cardiology Provider Unavailable Unavailable General Surgery Provider Unavailable Unavail able Lizzeth RUSSELL, Dr. Clinton Mares Unavailable Neurology Provider Unavailable Unavailable Rheumatolgy Provider Unavailable Unavailable Gillian Kearns MD Unavailable Angelique Kwan LPN Unavailable Sara Zee PA-C Unavailable Mark Denny MD Unavailable Christian JONES, Shantel Unavailable Unavailable Homar RUSSELL, Sumanth Miguel Unavailable Yared SHIRLEY, Yamileth Russo Unavailable [phone] Pablo SHIRLEY, Roland Flower Unavailable [phone] Jacoby JONES, Elma Unavailable Unavailable Miles SENIOR EDITOR, Cathi Unavailable Unavaila kyle Schmidt RN, Yamileth Miguel Unavailable Unavaila ble Kunal SENIOR EDITOR, Haresh Unavailable Unavailable Altamirano SENIOR EDITOR, Kelly Unavailable Unavailable Cameron MACHINE ASSISTANT, Terri Unavailable Unavailable Sania SENIOR EDITOR, Gillian M Unavailable Unavailab le [place] SENIOR EDITOR, Lilliana Jimenez Unavailable Unavailab le Vess SENIOR EDITOR, Yonymissy Cm Unavailable Unavailable Wengerd SENIOR EDITOR, Regina Unavailable Unavailabl e Unavailable Unavailable Allergies Allergy Classification Reported Allergen(s) Allergy Type Date of Onset Reaction(s) Facility (1 source) sulfamethoxazole Drug Allergy 8 [facility] Repository (1 source) trimethoprim Drug Allergy 8 [facility] Repository (1 source) Sulfacetamide Drug Allergy 8 [facility] Work Phone: (3 sources) Sulfamethoxazole / Trimethoprim; Translations: [] Drug Allergy 8 [facility] Work Phone: (1 source) Sulfamethoxazole / Trimethoprim Drug Allergy [facility]. Medications Current Medications Medication Drug Class(es) Dates Sig (Normalized) Sig (Original) lisinopril 5 mg oral tablet (1 source) Angiotensin Converting Enzyme Inhibitor Start: 08-19-2023 lisinopriL 5 mg tablet ; 1 (one) Tablet daily for 30 days Quantity: 30 {Tablet} Refills: 5 Ordered: 19-Aug-2023 CASPER Nagel Start: 19-Aug-2023 rizatriptan 10 mg oral tablet (3 sources) Serotonin-1b and Serotonin-1d Receptor Agonist Start: 08-19-2023 Maxalt 10 mg tablet ; 1 (one) Tablet at headache onset for 0 days Quantity: 9 {Tablet} Refills: 5 Ordered: 19-Aug-2023 CASPER Nagel Start: 19-Aug-2023 Comments: May repeat 2 hours later if headache persists; no more than 30mg/24 hours Completed/Discontinued Medications Medication Drug Class(es) Dates Sig (Normalized) Sig (Original) acetaminophen 500 mg / HYDROcodone bitartrate 5 mg oral tablet (1 source) Opioid Agonist Start: 10-26-2011 End: 09-27-2012 take 1-2 tablets by mouth every hour as needed VICODIN, 5-500MG (Oral Tablet) ; 1-2 Tablet every six hours, as needed for severe pain for 0 days Quantity: 30 {Tablet} Refills: 0 Ordered: 26-Oct-2011 Start: 26-Oct-2011 End: 27-Sep-2012 Status: Discontinued Comments: Medication taken as needed. This order discontinued per [facility]. Problems Active Problems Problem Classification Problem Date Documented Da te Episodic/Chronic Abdominal pain (9 sources) Epigastric pain; Translations: [Epigastric pain] Onset: 11-17-2017 09-21-2019 Episodic Acute and chronic tonsillitis (5 sources) Hypertrophy of tonsils; Translations: [Hypertrophy of tonsils] 08-19-2023 Chronic Acute bronchitis (4 sources) Acute bronchitis; Translations: [Acute bronchitis, unspecified] 09-21-2019 Episodic Allergic reactions (4 sources) Allergy status to other antibiotic agents status; Translations: [Allergy status to sulfonamides status] Onset: 11-17-2017 09-21-2019 Episodic Anxiety disorders (20 sources) Anxiety; Translations: [Anxiety disorder, unspecified] 08-19-2023 Chronic Cardiac dysrhythmias (7 sources) Palpitations; Translations: [Palpitations] 08-19-2023 Episodic Chronic obstructive pulmonary disease and bronchiectasis (2 sources) Bronchitis; Translations: [Bronchitis, not specified as acute or chronic] 08-19-2023 Episodic Disorders of teeth and jaw (2 sources) Infection of tooth; Translations: [Periapical abscess without sinus] 08-19-2023 Episodic Endometriosis (2 sources) Endometriosis (clinical); Translations: [Endometriosis, unspecified] 08-19-2023 Chronic Esophageal disorders (5 sources) Gastro-esophageal reflux disease without esophagitis; Translations: [Gastroesophageal reflux disease without esophagitis] Onset: 11-17-2017 08-19-2023 Chronic Essential hypertension (7 sources) Hypertensive disorder; Translations: [Essential (primary) hypertension] 04-30-2022 Chronic Headache; including migraine (20 sources) Migraine; Translations: [Migraine, unspecified, not intractable, without status migrainosus] 08-19-2023 Chronic Headache; including migraine (2 sources) Headache; Translations: [Headache] 09-21-2019 Episodic Hemorrhoids (1 source) Internal hemorrhoids without mention of complication 06-15-2013 Episodic Influenza (2 sources) Influenza with other respiratory manifestations 09-21-2019 Episodic Joint disorders and dislocations; trauma-related (5 sources) Unspecified dislocation of left shoulder joint, initial encounter; Translations: [Dislocation of joint of upper limb] Onset: 07-28-2018 08-23-2018 Episodic Mycoses (1 source) Mycosis; Translations: [Candidiasis, unspecified] 01-05-2020 Episodic Nonmalignant breast conditions (6 sources) Mastodynia; Translations: [Mastodynia] 06-20-2020 Episodic Nonspecific chest pain (3 sources) Chest pain, unspecified; Translations: [Chest wall pain] Onset: 11-17-2017 09-21-2019 Episodic Other connective tissue disease (4 sources) Bicipital tendinitis, left shoulder; Translations: [Bicipital tendinitis, left shoulder] Onset: 08-23-2018 08-23-2018 Episodic Other connective tissue disease (5 sources) Fibromyalgia; Translations: [Fibromyalgia] 08-19-2023 Episodic Other connective tissue disease (4 sources) Swelling of lower limb; Translations: [Other specified soft tissue disorders] 07-18-2020 Episodic Other connective tissue disease (2 sources) Pain of right calf; Translations: [Pain in right lower leg] 12-26-2020 Episodic Other connective tissue disease (2 sources) Pain in right thumb; Translations: [Pain in right finger(s)] 08-19-2023 Episodic Other connective tissue disease (1 source) Pain in lower limb; Translations: [Pain in leg, unspecified] 09-21-2019 Episodic Other ear and sense organ disorders (2 sources) Sensation of blocked ear; Translations: [Other specified disorders of ear, unspecified ear] 09-21-2019 Episodic Other endocrine disorders (2 sources) Polycystic ovary; Translations: [Polycystic ovarian syndrome] 08-19-2023 Chronic Other female genital disorders (2 sources) Premenstrual tension syndrome; Translations: [Premenstrual tension syndrome] 09-21-2019 Chronic Other gastrointestinal disorders (2 sources) Intermittent dysphagia; Translations: [Other dysphagia] 09-21-2019 Episodic Other gastrointestinal disorders (1 source) Constipation; Translations: [Constipation, unspecified] 09-18-2011 Episodic Other gastrointestinal disorders (1 source) Difficulty swallowing fluid; Translations: [Dysphagia, unspecified] 07-17-2011 Episodic Other liver diseases (2 sources) Steatosis of liver; Translations: [Fatty (change of) liver, not elsewhere classified] 08-19-2023 Chronic Other non-traumatic joint disorders (2 sources) Joint pain; Translations: [Pain in unspecified joint] 08-19-2023 Episodic Other non-traumatic joint disorders (3 sources) Hip pain; Translations: [Pain in right hip] 09-21-2019 Episodic Other nutritional; endocrine; and metabolic disorders (6 sources) Body mass index 30+ - obesity; Translations: [Body mass index (BMI) 35.0-35.9, adult] 08-24-2018 Chronic Other nutritional; endocrine; and metabolic disorders (4 sources) Obesity; Translations: [Obesity, unspecified] 08-19-2023 Chronic Other screening for suspected conditions (not mental disorders or infectious disease) (8 sources) Ultrasonography of breast abnormal; Translations: [Other abnormal and inconclusive findings on diagnostic imaging of breast] 09-01-2023 Episodic Other skin disorders (2 sources) Skin lesion; Translations: [Disorder of the skin and subcutaneous tissue, unspecified] 09-21-2019 Episodic Other upper respiratory infections (5 sources) Sinusitis; Translations: [Chronic sinusitis, unspecified] 12-26-2020 Chronic Other upper respiratory infections (2 sources) Upper respiratory infection; Translations: [Acute upper respiratory infection, unspecified] 11-01-2019 Episodic Otitis media and related conditions (2 sources) Purulent otitis media; Translations: [Suppurative otitis media, unspecified, unspecified ear] 08-19-2023 Episodic Residual codes; unclassified (2 sources) Viral syndrome; Translations: [Other general symptoms and signs] 09-21-2019 Episodic Residual codes; unclassified (2 sources) Tobacco use and exposure - finding; Translations: [Tobacco use] 08-19-2023 Episodic Spondylosis; intervertebral disc disorders; other back problems (4 sources) Backache, unspecified; Translations: [Neck pain] 09-21-2019 Episodic Sprains and strains (2 sources) Muscle strain; Translations: [Strain of unspecified muscle(s) and tendon(s) at lower leg level, right leg, initial encounter] 02-05-2015 Episodic Superficial injury; contusion (2 sources) Other and unspecified superficial injury of foot and toes, infected 09-21-2019 Episodic Thyroid disorders (6 sources) Hypothyroidism; Translations: [Hypothyroidism, unspecified] 08-19-2023 Chronic Past or Other Problems Problem Classification Problem Date Documented Date Episodic/Chronic Unclassified (1 source) Problem Unclassified (1 source) BICIPITAL TENDINITIS LEFT SHOULDER; Translations: [BICIPITAL TENDINITIS LEFT SHOULDER] Onset: 09-22-2018 Unclassified (1 source) Cold Symptoms - Symptoms include nasal congestion, runny nose, ear fullness, dry cough and headache, but do not include fever, chills or general malaise. The onset was gradual 10 day(s) ago. The symptoms occur constantly. The patient describes this as moderate in severity and unchanged. The patient is not currently being treated for this problem. The patient has been exposed to an individual with similar symptoms. Note for Upper respiratory infection : Pt had breast bx and was on Cefdinir 300mg bid for 5 days, pt finished yesterday - breast is better.No fever.Some SOB with coughing fits. 06-14-2023 Unclassified (1 source) Breast lump - The lump is on the left breast. The onset of the lump has been sudden and has been occurring for 24 hours. The first day of the last menstrual period was : (February 18, 2023). Note for Breast lump : Noticed lump in shower last evening.Tender but having fibro flair so is tender everywhere.No discharge from the nipples.No family history of breast cancer. Mom with fibrocystic breast. 03-11-2023 Unclassified (1 source) Follow up for chronic condition - The patient is here for follow-up of anxiety (4 week f/u). The patient has stopped the recommended medications (Stopped cymbalta after a few days d/t waking up w/ c/o nausea.). The patient engages in regular exercise program 1-3 times per week. The patient's out of office blood pressure checks occur frequently. The patient states that the disease has mild emotional impact. Note for Chronic condition follow-up : Pt has had increased anxiety. Takes Ativan PRN. This week has been a little rough , feels off - was triggered by muscle spasm/pinched nerve after cleaning. Overall feels she has been doing really well. 03-04-2023 Unclassified (1 source) Arm pain - The pain is in the left arm. The onset of the pain has been sudden and has been occurring in an intermittent pattern for 4 days. The course has been recurrent. The pain is described as moderate. Note for Pain : left arm pit and along left lateral/posterior ribs.Pt says not consistent pain deep ache , does hurt her.Pt has been taking ibuprofen; last taken at 1130am. 02-04-2023 Unclassified (1 source) Gum swelling - Back lower left socket started with tooth pain last week, gums is now swollen and uncomfortable. Has dental appointment tomorrow but feels she needs an ATB before then. Has tried OTC pain medicine every 4 hours with no relief. 12-08-2022 Unclassified (1 source) Sore throat - The sore throat has been occurring in a decreasing pattern for 5 days. The course has been gradually improving. The sore throat is described as mild. Symptoms include ear pain (she feels her ears are muffled and they need to pop), but do not include sore throat (pt had a sore throat on wednesday but not since then. Her left tonsil is still swollen) or fever. Medical history includes seasonal allergies and tonsillectomy, but does not include recurrent sinusitis or recurrent strep pharyngitis. Note for Sore throat : pts left tonsil is swollenpt had covid a month ago and has had some sx still from that but only in the mornings 09-17-2022 Unclassified (1 source) Cold Symptoms - Symptoms include nasal congestion, runny nose, dry cough and headache. The onset was 7 week(s) ago. The symptoms occur constantly. The patient describes this as moderate in severity and worsening (PT said her fever and body aches is better. Pt is now having more respiratory.). Current treatment includes saline nasal spray/drops. Risk factors include smoking. The patient has been exposed to an individual with a cough, an individual with an upper respiratory infection, an individual with similar symptoms and an individual with strep. Medical history includes seasonal allergies. Note for Upper respiratory infection : Pt tested positive for COVID is on day 7. 08-21-2022 Unclassified (1 source) recheck foot - Pt wants foot rechecked after wart treatment, had a large blister and part of it is starting to fill back up again. 05-07-2022 Unclassified (1 source) recheck wart - Pt had cryotherapy done to wart last week and now has a large blister and painful area that worsened over the weekend - no change since yesterday. No surrounding erythema or warmth. 05-04-2022 Unclassified (1 source) UTI - Symptoms include dysuria (mild and intermittent), urinary frequency, urinary urgency, malodorous urine and flank pain (right side yesterday), but do not include hematuria, dark urine, abdominal pain or back pain. The pain is located in the suprapubic area (pressure) and in the right flank (was an achy throbbing pain yesterday uncomfortable but not unbearable ). There is no radiation. The patient describes the pain as aching. Onset was sudden 4 day(s) ago. The symptoms occur constantly. The patient describes this as mild and unchanged (no longer has right flank pain today). Symptoms are not relieved by cranberry juice or non-opioid analgesics. Associated symptoms include urinary hesitancy, but do not include fever, chills, nausea, vomiting, urinary incontinence, nocturia, urethral discharge or vaginal discharge. Note for UTI : Has tried increasing fluid intake and drinking cranberry. Did have two uti's back in 2019, was told that if she had another that she should see a urologist. She did do a telehealth visit yesterday but was advised to go to the ER for evaluation. She contacted Dr. Denny who advised to come here today for office visit. 09-16-2021 Unclassified (1 source) Hand pain - The onset of the hand pain has been sudden and has been occurring in a persistent pattern for 1 day. The course has been worsening. The hand pain is characterized as a mild to moderate burning sensation (lots of pressure). The hand pain is described as being located in the thumb (right). The hand pain is aggravated by any movement, making a fist, extention of the finger and flexion of the finger. There have been no relieving factors. The symptoms have been associated with painful ROM, warmth, erythema and burning sensation, but have not been associated with fever or chills. Note for Hand pain : pt was in ER this morning and given a Toradol shot but that did not help at all. 03-12-2021 Unclassified (1 source) [ADDITIONAL REASON] Transition into care - The patient is transitioning into care from an emergency room and a summary of care was not provided. 03-12-2021 Unclassified (1 source) Cold Symptoms - Symptoms include runny nose, purulent discharge, ear fullness, sore throat, dry cough, headache and facial pain, but do not include fever. The onset was gradual 2 week(s) ago. The symptoms occur constantly. The patient describes this as moderate in severity and unchanged. Current treatment includes cough suppressants, nasal corticosteroids and NSAIDs. The patient has been exposed to an individual with similar symptoms. Patient denies history of seasonal allergies. Note for Upper respiratory infection : Lots of PND. Has a migraine now - had run out of her maxalt. 12-26-2020 Unclassified (1 source) Leg pain - The leg pain began suddenly and has been occurring for hours. The symptoms have been occurring in an increasing pattern. The symptoms are described as a sharp, stabbing pain and are moderate in severity. The symptoms occur when walking. There is involvement of the right calf. There are no precipitating factors. Aggravating factors include walking. Relief is provided by rest. The symptoms have been associated with calf swelling, while the symptoms have not been associated with chest pain, diaphoresis, foot/leg ulcers, cough or fever. There is a medical history of hypertension and long history of tobacco use, while there is no history of diabetes, peripheral vascular disease or phlebitis. Note for Leg pain : was on a beta odin for her blood pressure (metoprolol) and had numbness and tingling in her toes and toes turning white, so switched to lisinopril.no redness or warmth noted in the back of the calf 09-10-2020 Unclassified (1 source) Hypertension - The onset of the hypertension has been acute. The hypertension has been occurring in a continuous pattern for 3 days. The course has been constant. The JNC classification is Stage 1 hypertension - 140-159 or 90-99 The symptoms do not include headache. Habits include non-smoker. Note for Hypertension : Pt had been vaping and had decreased 1 week ago and now has not had any nicotine since Wednesday. Pt was seen on 07/26/2020 for Migraine and increased bp. 08-03-2020 Unclassified (1 source) Hypertension - The onset of the hypertension has been acute. The hypertension has been occurring in a continuous pattern for 2 days. The course has been constant. The JNC classification is Stage 1 hypertension - 140-159 or 90-99 The symptoms include headache. Note for Hypertension : Pt is having a migraine now. Started this morning. Didn't have her maxalt with her to take - so hasn't taken anything.No prior history of HTN but BP was elevated 140s/90s at podiatry office yesterday.Had BP checked at work today and it was 200/100s. Immediately started coming down - last reading was 150s/90s. 07-28-2020 Unclassified (1 source) Leg pain - The leg pain began gradually over time. The symptoms are described as a burning sensation and dull ache and are moderate in severity. There is involvement of the right calf. There are no precipitating factors. The symptoms have been associated with calf swelling. Note for Leg pain : Pt had nonvascular US in April that showed an area of fluid. Pt stopped wearing the compression socks after 1 week because they were uncomfortable. No redness or warmth. No low back pain. Had some burning of lateral lower leg as well as some discomfort --- has been over the past 2 weeks. Has fibromyalgia so hard to discern if pain is different from what she typically experiences. 07-18-2020 Unclassified (1 source) Fatigue - The onset of the fatigue has been acute and has been occurring in a persistent pattern for 2 weeks. The course has been constant. The fatigue occurs all the time. There has been no associated fever. Note for Fatigue : Ribs and chest are painful, fatigue and body have improved in the last 2 days.Has done epsom salt soaks, tylenol, heating pads, and ativan. Was good and then about 6 days ago she had full body aches but no fever or URI symptoms. Worse with breathing but not short of breath.Has been off of her omeprazole and taking pepcid. Only took topamax for about 10 days but stopped it because she didn't like how it made her feel. [place] floaty/out of body.No increased stress. Had a televist over spring/summer with rheum. She was going to do supplements/diet x 6 months before starting cymbalta. Told her labs were all ok and symptoms are consistent with fibromyalgia. Quit smoking 2 weeks ago.Gets covid testing for work and it has been negative. 06-21-2020 Unclassified (1 source) lump - Patient noticed lump on right galdamez on . By night it was gone. Noticed again today. No redness, warmth, or fever. Maybe mild pain but is sore all over (fibro) so not sure if it is any more than her baseline. No history of injury. Calf was maybe a little achy last week. No new meds. 04-29-2020 Unclassified (1 source) Follow up consultation - The patient is here to follow-up after Emergency Room/Urgent Care on : (03/12/2020, [facility]- Abdominal pain). Current symptoms include abdominal pain. Note for Consultation follow-up : Patient started omeprazole on Wednesday and is feeling much better.Had been taking ibuprofen for headaches/fibro. Trying to cut back on sugar and caffeine for her fibro.Has felt some breast pain/lumps and would like those checked today as well. 03-18-2020 Unclassified (2 sources) [ADDITIONAL REASON] Transition into care - The patient is transitioning into care from an emergency room and a summary of care was reviewed. 03-18-2020 Unclassified (1 source) Cold Symptoms - Symptoms include sore throat (wednesday only, then rest stared yesterday), dry cough, productive cough, chills, general malaise and headache, but do not include fever (has checked multiple times). The onset was gradual. The symptoms occur constantly. The patient describes this as moderate in severity and worsening. Current treatment includes non-prescription cold medication and allergy medications. The patient has been exposed to an individual with similar symptoms. Patient denies history of seasonal allergies, recurrent sinusitis, recurrent strep pharyngitis, asthma, tonsillectomy or recurrent ear infections. 11-01-2019 Unclassified (1 source) Leg pain - The leg pain began gradually over time and has been occurring for 6 days. The symptoms have been occurring in an intermittent pattern. The symptoms are described as a discomfort (tenderness, feels like a bruise) and are mild in severity. The symptoms occur at rest, when climbing stairs, when lying down, at night and during the day. There is involvement of the right lower extremity (anteromedial just below the knee). There are no precipitating factors. Relief is provided by nothing (did take ibuprofen 400mg without improvement). There has been no associated chest pain or dyspnea. Note for Leg pain : No redness, warmth, swelling, or progression.Worse when bending down on knee or if pressure on the area.No history of injury. 09-21-2019 Unclassified (1 source) Follow up consultation - The patient is here to follow-up after Emergency Room/Urgent Care (07/18/19 for left shoulder pain that radiated to her chest and some around to her back. Not extertional. [facility]. They did labs, ekg, chest xray, ct of chest. Everything was normal but her D Dimer was slightly elevated (245) so chest CT was done. Intermittent pain. When she lays down on her right side at night it feels like pressure on left side/shoulder. Does hurt to push on the area. Always feels bruised all over. Not taking anything. Was given rx for ibuprofen but never filled it.). 07-21-2019 Unclassified (1 source) Neck pain - The onset of the neck pain has been sudden following no specific incident and has been occurring in a persistent pattern for 1 day. The course has been increasing. The neck pain is described as a severe sharp stabbing. The neck pain is described as being located in the occiput, right lateral neck and left lateral neck and radiating no where. Aggravating factors include bending to the right and bending to the left. There have been no relieving factors. There are no associated features fever, shoulder pain or trauma. There have been no previous diagnostic tests. There have been no previous evaluations. There has been no previous physical therapy. There has been no previous neck surgery. Previous medications have included Ibuprofen. The pain interferes with driving and work severely. Note for Neck pain : [place] leaving for [place] tomorrowhas history of migraines as well as neck tension 03-16-2019 Unclassified (1 source) Abdominal pain - The onset of the abdominal pain has been gradual (Wednesday - pelvic pressure and then left flank pain; took ibuprofen 600mg at night and woke up and felt better other than little bit of pelvic pressure. Wednesday no symptoms. Wednesday had pelvic pressure down to vagina and then noticed discomfort in right flank.) and has been occurring in an intermittent pattern for 4 days. The pain is described as a moderate dull ache, pressure sensation (in pelvis) and cramping. The pain is located in the suprapubic area (and both flanks -left and right). The symptoms are aggravated by standing and walking but have no relieving factors. The symptoms have been associated with constipation (last week but now BMs are normal), while the symptoms have not been associated with bulky stools, dark urine, diarrhea, dysuria, fever, heartburn, nausea or vomiting. Note for Abdominal pain : History of diverticulitis x 2. Still has gallbladder and appendix.LMP was 12/02/18.History of diverticulitis - hasn't had symptoms for awhile but previously she always had them around ovulation. 12-21-2018 Unclassified (1 source) Cold Symptoms - Symptoms include sneezing, nasal congestion, runny nose, ear pain, ear fullness, dry cough, fever (low grade), chills, general malaise and facial pain, but do not include sore throat, productive cough, wheezing or headache. The onset was sudden 3 day(s) ago (has had a runny nose in the am's for a few weeks). The symptoms occur constantly. The patient describes this as moderate in severity and worsening. Current treatment includes non-prescription cold medication (nina seltzer/ nyquil). Risk factors include smoking. The patient has been exposed to an individual with a cough and an individual with similar symptoms. Patient denies history of seasonal allergies, asthma or tonsillectomy. Note for Upper respiratory infection : reviewed by [facility] 10-24-2018 Unclassified (1 source) Follow up consultation - The patient is here to follow-up after Emergency Room/Urgent Care (07/28/2018; [facility]; injury happened when she was laying on floor trying to break up a fight between dogs - thinks the larger dog that she was holding on to must have jerked. Anterior dislocation of left shoulder. Had pre and post reduction x-rays done. Blood and EKG were also done. Sent home on vicodin which caused headache and constipation so she stopped taking. Pain is controlled with ibuprofen and tylenol. Doing ice application. Wearing sling. Has intermittent burning, aching in the upper left arm down to elbow.). 08-01-2018 Unclassified (1 source) non healing sore - Patient is here with complaints of having a non healing sore on the back of her right thigh. Noticed it labor day weekend. Slightly bigger than it was initially. Color has changed. Different appearance (red) and scaly . No drainage that she has noticed. It has been tender and itchy sometimes. Tried Epsom salt and triple antibiotic ointment. No fever. 06-22-2018 Unclassified (1 source) issues - Patient states about 2 weeks ago while under stress she felt palpitations - she took 1/2 of a ativan and relaxed and that got better. Then recently she has been under alot of stress- family and teenager daughter. Yesterday she felt like she had an irregular heartbeat like a palpitation - made her feel like she was losing her breath at times. Her father in August with heart issues (was to have mitral valve and they couldn't do it so they did a bypass) so ended up in cardiac arrest - he was 77 and she said that it has been weighing on her, he had afib, valves bad, and bypass. So last night she went to bed and woke up feeling great and then she started to do her hair and felt yucky so she went and ate. She then felt heavy, couldn't breathe and had a doom/fearful feeling. Started crying, vomiting. Even at work she felt off - emotional and just wanted to be left alone. Has fibromyalgia. She has had a 24 hr monitor 2-3 yrs ago, ekg done twice also. Said that these feelings have been going on for years (chest pain intermittently). Did not try the ativan yesterday or today. 03-21-2018 Unclassified (1 source) Abdominal pain - The onset of the abdominal pain has been gradual and has been occurring in an intermittent pattern for 1 week. The course has been recurrent. The pain is described as a moderate sharp pain and dull ache. The pain is located in the left upper quadrant and radiates to the back and left flank. The symptoms are aggravated by meals (1/2 to 1 hour after eating) (had an episode last week after eating taco kerr and then not again until last night after she ate fried fish and chips and then again this morning after she drank coffee). There has been no associated constipation, diarrhea, fever, nausea or vomiting. Note for Abdominal pain : She has had diverticulits in the past and also still has gallbladder.Gallbladd er US done in 2016 - normal GB; no HIDA scan done at that time.Hasn't consistently had symptoms after eating fatty/fried foods.No recent alcohol intake.Pain is short lasting.Little nausea with the pain but thinks that might just be due to the pain (usually feels sick when she is in pain).No diarrhea. BMs have been normal for her - not daily BMs. No bloating.Takes lots of ibuprofen. 10-20-2017 Unclassified (1 source) Cold Symptoms - Symptoms include runny nose, ear pain, sore throat, dry cough, chills, general malaise (really bad) and headache, but do not include nasal congestion or fever (if so low grade). The onset was sudden 1 day(s) ago. The symptoms occur constantly. The patient describes this as moderate in severity and worsening. Current treatment includes allergy medications and acetaminophen (last dose was this morning). The patient has not been exposed to an individual with similar symptoms. Patient denies history of seasonal allergies, recurrent sinusitis, recurrent strep pharyngitis, asthma, tonsillectomy or recurrent ear infections. 10-01-2017 Unclassified (1 source) Cold Symptoms - Symptoms include nasal congestion, runny nose (drainage in back throat), sore throat, general malaise and headache, but do not include ear pain, dry cough, productive cough, wheezing, fever, chills or facial pain. The onset was gradual 3 day(s) ago. The symptoms occur constantly. The patient describes this as moderate in severity and unchanged. Current treatment includes non-prescription cold medication. The patient has been exposed to an individual with similar symptoms (daughter; was also at a prior to symptoms starting). Patient denies history of seasonal allergies, recurrent sinusitis, recurrent strep pharyngitis, asthma, tonsillectomy or recurrent ear infections. 08-25-2017 Unclassified (1 source) Cold Symptoms - Symptoms include nasal congestion, runny nose, ear pain (right ear), ear fullness, sore throat, hoarseness, productive cough and headache, but do not include fever, chills, general malaise or facial pain. The onset was sudden 3 day(s) ago. The symptoms occur constantly. The patient describes this as moderate in severity and unchanged. Current treatment includes non-prescription cold medication. Patient denies history of seasonal allergies or asthma. Note for Upper respiratory infection : Finished a round of Macrobid last night for UTI. 03-20-2016 Unclassified (1 source) Headache - The onset of the headache has been gradual (History of migraines since childhood. Has been taking maxalt which is effective but has to ration them since is limited to 9 per month. For the past 2 months she has been having a pain that has not been classic with her migraines in the past. It is neck pain and a sharp/stabbing pain in the head (usually along crown of the head) - may or may not be associated with a headache. Sometimes this only lasts for seconds. The top of her head feels tender. Has felt off for quite awhile now but can't determine the exact cause. Last weekend she had a migraine for 4 days - took maxalt x 2 and then ibuprofen.Headaches are worse around her ovulation/menses and have been linked to stress in the past (but feels her stress level is so much less). Her right eye has been sore and seems out of focus at times - has only noticed it at work when looking at the computer and when driving. If looks away from the computer for a little bit it resolves. Last eye appt was 05/2015. No balance issues or falls. No facial numbness or weakness. Recently saw slicing machine feeder for nodule/goiter - her thyroid level was normal though so no treatment indicated. Has f/u appt at the end of March.Saw Dr. Moreau about 2-3 years ago for her headaches but at that point she was undergoing fertility treatments so declined any management other than magnesium and riboflavin (which she didn't have improvement with). Has been given rx in the past for topamax but didn't start it due to possible side effects that were listed.Has sensitivity to touch of her upper body. LEB had mentioned possible fibromyalgia in the past.Mom with history of fibromyalgia and OA.) and has been occurring in an intermittent pattern. Note for Headache : No nausea or fever. 03-12-2016 Unclassified (1 source) Chest pain - The onset of the pain has been gradual and has been occurring in a recurrent pattern for months. The pain is described as a mild to moderate stabbing sensation (lasts for seconds). The pain is described as being located in the left chest. Note for Chest pain : -Had negative ER workup in Oct 2015 (CXR, EKG). Discomfort continues. No breast tenderness; localizes more to chest wall. Switched from omeprazole to ranitidine (pt did have direct laryngoscopy in 2010 and GERD was noted). Also has some random pain in both sides of the neck that she does not know if it is related or not (only occurred with CP once). This pain is not reproducible. Occasional trouble swallowing-sometimes has to take a drink to get food to go down. Has not occurred recently.When first has the pain, she would have palpitations that she felt may have been from anxiety about pain; this is better since reassurance of ER visit.Brief stabbing pain to left of midline; ribs sensitive to touch.Has tried to improve diet and cut back on pop intake but still has not lost weight. 01-15-2016 Unclassified (1 source) [ADDITIONAL REASON] Transition into care - The patient is transitioning into care from an emergency room (chest pain presumed musculoskeletal) and a summary of care was reviewed . 01-15-2016 Unclassified (1 source) Abdominal pain - The onset of the abdominal pain has been sudden and has been occurring in a persistent ( stomach feels raw and bloated ) pattern for 2 days. The course has been constant (does not have the waves of pain today like she had yesterday). The pain is described as a moderate dull ache and cramping (burning). The pain is located in the upper abdomen (in the middle). The symptoms have no aggravating factors. The symptoms have been associated with bloating, fever (low grade yesterday) and nausea, while the symptoms have not been associated with constipation (did noticed today that her bowel movement was light cream color), dysuria or vomiting. Note for Abdominal pain : yesterday noticed having nausea after eating breakfast. Has had a decreased appetite. Has eaten toast, chicken noodle soup and crackers since yesterday morning. No heartburn or chest pain. Today, has noticed having pain of the right flank (?muscle); no UTI sx.Had nausea Sat after eating some nuts. Then after breakfast yesterday, had onset of the pain (breakfast burrito with eggs/sausage). No sick contacts. No GERD for a few weeks. 09-09-2015 Unclassified (1 source) Leg pain - The leg pain began suddenly and has been occurring for 5 weeks. The symptoms have been occurring in an intermittent (only bothers her if pressure is on the area (no associated lump or swelling)) pattern. The symptoms are described as a ache (to the touch) and are mild to moderate in severity. There is involvement of the right calf (lower lateral). There are no precipitating factors. There has been no associated cyanosis, pallor of extremity, paresthesias, numbness and tingling in toes or fever. There is a medical history of long history of tobacco use (8 years), while there is no history of cardiovascular disease, diabetes, elevated cholesterol or hypertension. There is a family history of diabetes, hypertension, elevated cholesterol and peripheral vascular disease. Note for Leg pain : Patient reports that she has not noticed any redness or warmth to the right lower leg. Last Wednesday after working during the day, she noticed that her right foot was swollen due to her shoe feeling tighter than her left. She has not noticed there to be swelling besides this one time. Feet always sore end of day.Patient reports mostly noticing the pain when touched or pressure is applied. localized to lateral low left leg.No personal hx DVT. No family hx DVT (dad has PAD). No recent travel (did travel by air to [place] late November), has done some driving around [place] in January (did take breaks every 2-3 hours). No recent surgery. 02-05-2015 Unclassified (1 source) Cold Symptoms - Symptoms include sore throat, hoarseness, dry cough, wheezing, chills and general malaise. The onset was sudden 5 day(s) ago. The symptoms occur constantly. The patient describes this as moderate in severity and worsening. Current treatment includes non-prescription cold medication, acetaminophen and NSAIDs. Risk factors do not include child in daycare or smoking. The patient has not been exposed to an individual with similar symptoms. Note for Upper respiratory infection : reviewed by [facility] 12-01-2014 Unclassified (1 source) Cold Symptoms - Symptoms include nasal congestion, runny nose, purulent discharge, sore throat (initially; now resolved), productive cough, fever (low grade 99.5 on Wednesday only) and headache, but do not include ear pain. The onset was gradual 7 day(s) ago. The symptoms occur constantly. The patient describes this as moderate in severity and unchanged. Current treatment includes non-prescription cold medication (nina seltzer cold). The patient has been exposed to an individual with similar symptoms (). Patient denies history of seasonal allergies, recurrent sinusitis, recurrent strep pharyngitis, asthma, tonsillectomy or recurrent ear infections. 10-18-2014 Unclassified (1 source) Shoulder pain - The onset of the shoulder pain has been acute and has been occurring in a persistent pattern for 1 week. The course has been worsening. The pain is characterized as a moderate to severe dull aching and sharp stabbing. The pain is described as being located in the left shoulder and left side of the neck (and shoulder blade) and is aggravated by physical activity and overhead activity. Relieving factors include nothing (has tried heat, ibuprofen (400 mg per dose) and had a massage, nothing has helped). Note for Shoulder pain : Patient had no injury. Is having a hard time sleeping at night due to the pain. Is under alot of stress right now at work. Is at a desk and on a computer a fair amt; not a lot of time on the phone. 05-04-2014 Unclassified (1 source) Headache - The onset of the headache has been acute and has been occurring in a persistent pattern for 12 hours. The course has been increasing in frequency (15 a month.). The headache is characterized as throbbing (right side). The headache is experienced upon awakening. The headache is described as being located in the right side. The symptoms have been associated with nausea (slight), while the symptoms have not been associated with blurring of vision, eye pain or flashing lights. Note for Headache : She started fertility drugs last mointh and it does seem to make the migraines worse. Has also been under increased job stress. 12-05-2013 Unclassified (1 source) discuss migraines - Pt has been having migraines for several years and relpax helps a lot but her insunce will only pay for 9 pills a month and recently that has not been enough for her (has been having 5-6 headaches just around her cycle). She had been taking ibuprofen but she is trying to get and her fertility doctor advised her to not use ibuprofen. Pt wants to know if there is a preventative thing she could do/take. She has been going to chiropractor but that has not helped much. Her fertility doctor suspects that just the change in hormones is causing her increased headaches. Off clomid this month. The next step is IUI but patient isn't sure she wants to do that. 08-16-2013 Unclassified (1 source) Rectal bleeding - The onset of the rectal bleeding has been acute and has been occurring in a persistent pattern for 4 days. The bleeding is characterized as bloody toilet bowl water. The symptoms do not include painful bowel movements. Note for Rectal bleeding : Usually constipated - typically has a BM every few days. Denies painful BMs. No rectal itching. Some straining with BMs. + hard stool. Blood was bright red. Blood was only on one side of the stool. History of hemorrhoids since she had her daughter 10 years ago - doesn't usually bother her though. No family history of GI issues other than dad with diverticulitis.She recently started 2nd round of clomid so wasn't sure if that was a possible side effect. Initially diagnosed with PCOS although no cysts on ovaries on US. Had a slight increase in DHEA-S. Had an HSG in February. Went to [facility] for a second opinion and was told she may have endometriosis since she has rectal and pelvic pain mid way through her cycle. Sent to a urologist who did a CT which was normal. Then sent to reproductive endocrinology in [place] and was started on clomid and referred for pelvic floor therapy. 06-15-2013 Unclassified (1 source) Headache - The onset of the headache has been acute and has been occurring in an intermittent (has days without a headache) pattern for 2 months (Has had migraines intermittently for the past 15 years but they are usually bearable with excedrin migraine and ibuprofen. For the past 2 months they have been getting worse and are occurring more frequently. In December she had to go to the ER for one - had vomiting with that one. ). The course has been recurrent, increasing in severity and increasing in frequency. The headache is characterized as moderate. The headache is experienced later in the day. The symptoms are aggravated by noise and bright light. The symptoms have been associated with anxiety. Note for Headache : Thinks that a lot of the headaches are related to stress at work. She started a new job around the same time that they worsened. Has a lot of pressure and responsibility at work because her position is a new one so she is creating it as she goes. Had about 3-4 headaches last month. Says she is able to function while she has the headache sometimes but other times they are debilitating. Has taken imitrex in the past which didn't work. Has taken relpax which took the migraine away but kind of made her feel funny. She is aware of her triggers. Doesn't eat Urdu food and tries to avoid foods with preservatives because of this. Knows that they tend to worsen around her period. Has been seeing OBGYN for infertility issues. Diagnosed with PCOS but not on any medication to help with fertility at this point. Has been more emotional/worked up but doesn't feel depressed. She had a CT/MRI in 2006. 01-27-2013 Unclassified (1 source) Foot pain - The pain is in the right foot and is located in the plantar foot. The onset of the foot pain was sudden (after stepping on a hammer at home) and has been occurring in a persistent pattern for 2 weeks. The course has been decreasing (thought it was healing until this week when it started to get worse; there is now redness around the outer edges). The pain is moderate. The pain is characterized as a dull aching. The pain has not been relieved by anything. There have been no previous diagnostic tests. There have been no previous evaluations. These has been no previous physical therapy. Note for Foot pain : Her last tetanus would have been as a child (>10 years). No drainage from the area. Has been putting neosporin on it. 12-23-2012 Unclassified (1 source) Cold Symptoms - Symptoms include nasal congestion, runny nose, purulent discharge (just starting with some yellowish d/c), sore throat, productive cough (hurts to breathe and cough), chills, general malaise and headache, but do not include fever. The onset was sudden 4 day(s) ago (seemed better Sun and yesterday but acutely worsened overnight last night). The symptoms occur constantly. The patient describes this as moderate in severity and worsening. Current treatment includes non-prescription cold medication and NSAIDs. Risk factors include smoking, but do not include child in daycare. The patient has been exposed to an individual with similar symptoms (daughter had influenza 6 weeks ago; coworker had a cold last week). Patient denies history of asthma. Note for Upper respiratory infection : did not have flu shot this year 09-27-2012 Unclassified (1 source) Back pain - The onset of the pain has been acute and has been occurring in a persistent pattern for 3 days. The course has been constant. The pain is characterized as stabbing and shooting. The pain is located in the lower back and radiates to the left thigh (and left buttock). There are no precipitating factors. The symptoms are aggravated by prolonged standing and prolonged sitting (and bending) and are relieved by nothing (has been using heat and ibuprofen 600mg). Note for Back pain : Pt states that in Sep 2008 she had an mri which showed a bulged disc at s1. At that time she had numbness and tingling but does not have that this time; does have pain radiating down left thigh. She had PT and some muscle relaxers/pain medication and it healed up. Has not had trouble since until Wednesday when she was doing light cleaning. Noticed Sat evening and worsened by 10-26-2011 Unclassified (1 source) Ear pain - The onset of the pain has been acute and has been occurring in a persistent pattern for 3 days. The course has been constant. The pain is described as a moderate pressure and plugged. The pain is described as being located in the inner ear. The pain is felt in the left ear. There has been no associated sore throat or cough. Note for Ear pain : Says hearing was muffled initially. Had a little bit of vertigo. Decreased hearing yesterday. Feeling some better today. Says has a history of ear infections and this is normally how they start out. Took OTC decongestant yesterday. Says there is no ear pain. Has had a migraine for the past 2 days - usually takes ibuprofen/excedrin for this. Has been under a lot of stress with new job and quitting smoking. Doesn't want further evaluation/management of the headache at this time, just wanted to mention. Also mentioned at the end of the visit about some LLQ pain that she had about 2 weeks ago - has had intermittently since then. Is only slight twinches. Not muscle related. Says she called health information clerk doctor a couple of weeks ago and has just been monitoring. Says she has been constipated over the past couple of weeks and notices some bloating too that is better when she has a BM. 09-18-2011 Unclassified (1 source) problems swallowing - Pt is here today to establish care. She moved to the area about a year ago. Is complaining of trouble swallowing. Has been occuring intermittently for the past 3 months but worsening over the past week or so. No precipitating factors. No known triggers although does seem to be worse when her mouth is dry. Feels like there is something stuck or pushing in on the right side of her throat when initiates swallowing. Only feels this when swallowing liquids - trouble even with saliva. No trouble breathing. No recent illnesses. Thinks it might be worse when she is lying down but isn't sure. No pain just bothersome and uncomfortable. When she was did have hypothyroidism but resolved after - hasn't had checked for about 3 years. History of migraines since the age of 13 - has been on relpax and imitrex in the past but didn't like how they made her feel. She feels can manage fine with ibuprofen and sleep. On average gets about 3/month - is not interested in a preventative medication. Seem to occur more around her menses and times of stress. Periods are normal - last was 07/16/11. Has had tetanus immunization but thinks was >10 years ago - declines update today. 07-17-2011 Results Test Name Value Interpretation Reference Range Facil ity Vital Signs Date Time Vital Sign Value Performing Clinician Misbah ortiz 08-19-2023 08:09-0500 Body height 160.02 cm Gillian Lui LPN [facility], [facility]. 08-19-2023 08:09-0500 Body mass index (BMI) [Ratio] 39.33 kg/m2 Gillian Lui LPN [facility].; [facility]. 08-19-2023 08:09-0500 Body surface area Derived from formula 2.02 m2 Gillian Lui LPN [email or web address] [facility].; [email or web address] [facility]. 08-19-2023 08:09-0500 Body weight 100.7 kg Gillian Lui LPN [facility].; [employer], [facility]. 08-19-2023 08:09-0500 Diastolic blood pressure 83 mm[Hg] Gillian Lui LPN [email or web address] [facility].; [employer] Encounters Encounter Date Encounter Type Care Provider Facility Start: 09-01-2023 End: 09-01-2023 Orders Anitha Nagel PA-C Work Phone: [employer] [facility]. Start: 08-31-2023 End: 08-31-[address] [facility] Start: 08-19-2023 End: 08-19-2023 Office outpatient visit 25 minutes Anitha Nagel PA-C Work Phone: [employer] [facility]. Start: 08-13-2023 End: 08-13-2023 Orders Anitha Nagel PA-C Work Phone: [employer] [facility]. Start: 07-15-2023 End: 07-15-2023 Medication Anitha Nagel PA-C Work Phone: [employer] [facility]. Start: 06-14-2023 End: 06-14-2023 Patient encounter procedure Anitha Nagel PA-C Work Phone: [employer]. Start: 05-11-2023 End: 05-11-2023 Medication Anitha Nagel PA-C Work Phone: [employer]. Start: 03-19-2023 End: 03-19-2023 Orders Anitha Nagel PA-C Work Phone: [employer]. Start: 03-19-2023 End: 03-19-[address] [facility] Start: 03-11-2023 End: 03-11-2023 Office outpatient visit 15 minutes Anitha Nagel PA-C Work Phone: [employer]. Start: 03-04-2023 End: 03-04-2023 Office outpatient visit 15 minutes Anitha Nagel PA-C Work Phone: [employer]. Start: 02-04-2023 End: 02-04-2023 Office outpatient visit 15 minutes Anitha Nagel PA-C Work Phone: [employer]. Start: 02-03-2023 End: 02-03-2023 Medication Anitha Nagel PA-C Work Phone: [employer]. Start: 12-08-2022 End: 12-08-2022 Office outpatient visit 15 minutes Anitha Nagel PA-C Work Phone: [employer]. Start: 11-11-2022 End: 11-11-2022 Medication Anitha Nagel PA-C Work Phone: [employer]. Start: 10-26-2022 End: 10-26-2022 Orders Anitha Nagel PA-C Work Phone: [employer]. Start: 10-20-2022 End: 10-20-2022 Orders Anitha Nagel PA-C Work Phone: [employer]. Start: 10-12-2022 End: 10-12-2022 Orders Anitha Nagel PA-C Work Phone: [employer]. Start: 09-17-2022 End: 09-17-2022 Office outpatient visit 15 minutes Anitha Nagel PA-C Work Phone: [employer]. Start: 09-01-2022 End: 09-01-2022 Orders Anitha Nagel PA-C Work Phone: [employer]. Start: 08-21-2022 End: 08-21-2022 Office outpatient visit 15 minutes Anitha Nagel PA-C Work Phone: [employer]. Start: 07-13-2022 End: 07-13-2022 Medication Anitha Nagel PA-C Work Phone: [employer]. Start: 05-07-2022 End: 05-07-2022 Patient encounter procedure Anitha Ngael PA-C Work Phone: [employer]. Start: 05-04-2022 End: 05-04-2022 Patient encounter procedure Anitha Nagel PA-C Work Phone: [employer]. Start: 04-30-2022 End: 04-30-2022 Patient encounter procedure Anitha Nagel PA-C Work Phone: [employer]. Start: 03-30-2022 End: 03-30-2022 Medication Anitha Nagel PA-C Work Phone: [employer]. Start: 01-15-2022 End: 01-15-2022 Medication Anitha Nagel PA-C Work Phone: [employer]. Start: 10-17-2021 End: 10-17-2021 Medication Anitha Nagel PA-C Work Phone: [employer]. Start: 09-16-2021 End: 09-16-2021 Office outpatient visit 15 minutes Anitha Nagel PA-C Work Phone: [employer]. Start: 03-13-2021 End: 03-13-2021 Orders Anitha Nagel PA-C Work Phone: [employer]. Start: 03-13-2021 End: 03-13-2021 Telephone follow-up Anitha Nagel PA-C Work Phone: [employer]. Start: 03-12-2021 End: 03-12-2021 Office outpatient visit 15 minutes Aintha Nagel PA-C Work Phone: [employer]. Start: 12-26-2020 End: 12-26-2020 Office outpatient visit 15 minutes Anitha Nagel PA-C Work Phone: [employer]. Start: 12-11-2020 End: 12-11-2020 Medication Anitha Nagel PA-C Work Phone: [employer]. Start: 11-20-2020 End: 11-20-2020 Medication Anitha Nagel PA-C Work Phone: [employer]. Start: 10-31-2020 End: 10-31-2020 Telephone follow-up Anitha Nagel PA-C Work Phone: [employer]. Start: 09-10-2020 End: 09-10-2020 Office outpatient visit 10 minutes Anitha Nagel PA-C Work Phone: [employer]. Start: 2020 End: 2020 Orders Anitha Nagel PA-C Work Phone: [employer] Start: 08-22-2020 End: 08-22-2020 Patient encounter procedure Anitha Nagel PA-C Work Phone: [employer]. Start: 08-12-2020 End: 08-12-2020 Medication Anitha Nagel PA-C Work Phone: [employer]. Start: 08-02-2020 End: 08-03-2020 Office outpatient visit 15 minutes Anitha Nagel PA-C Work Phone: [employer] Start: 07-26-2020 End: 07-28-2020 Patient encounter procedure Anitha Nagel PA-C Work Phone: [employer]. Start: 07-18-2020 End: 07-18-2020 Patient encounter procedure Anitha Nagel PA-C Work Phone: [employer]. Start: 06-26-2020 End: 06-26-2020 Telephone follow-up Anitha Nagel PA-C Work Phone: [employer]. Start: 06-20-2020 End: 06-21-2020 Office outpatient visit 15 minutes Anitha Nagel PA-C Work Phone: [employer]. Start: 05-09-2020 End: 05-09-2020 Orders Anitha Nagel PA-C Work Phone: [employer]. Start: 04-29-2020 End: 04-29-2020 Patient encounter procedure Anitha Nagel PA-C Work Phone: [employer]. Start: 03-18-2020 End: 03-18-2020 Office outpatient visit 25 minutes Anitha Nagel PA-C Work Phone: [employer]. Start: 01-05-2020 End: 01-05-2020 Medication Anitha Nagel PA-C Work Phone: [employer]. Start: 11-01-2019 End: 11-01-2019 Office outpatient visit 15 minutes Anitha Nagel PA-C Work Phone: [employer]. Start: 09-21-2019 End: 09-21-2019 Office outpatient visit 15 minutes Anitha Nagel PA-C Work Phone: [employer]. Start: 07-26-2019 End: 07-26-2019 Historical Summary Anitha Nagel PA-C Work Phone: [employer]. Start: 07-26-2019 End: 07-26-2019 Telephone follow-up Anitha Nagel PA-C Work Phone: [employer]. Start: 07-21-2019 End: 07-21-2019 Patient encounter procedure Anitha Nagel PA-C Work Phone: [employer]. Start: 06-14-2019 End: 06-14-2019 Medication Anitha Nagel PA-C Work Phone: [employer]. Start: 03-16-2019 End: 03-16-2019 Office outpatient visit 10 minutes Anitha Nagel PA-C Work Phone: [employer]. Start: 02-13-2019 End: 02-13-2019 Medication Anitha Nagel PA-C Work Phone: [employer]. Start: 12-21-2018 End: 12-21-2018 Office outpatient visit 15 minutes Anitha Nagel PA-C Work Phone: [employer]. Start: 11-14-2018 End: 11-14-2018 Medication Anitha Nagel PA-C Work Phone: [employer]. Start: 10-24-2018 End: 10-24-2018 Office outpatient visit 15 minutes Anitha Nagel PA-C Work Phone: [employer]. Start: 09-22-2018 End: 10-12-2018 Patient encounter procedure EVELIN JALLOH Facility:[facility] Start: 08-23-2018 End: 08-23-2018 Patient encounter procedure Evelin GILMAN-C Work Phone: [facility] Work Phone: Start: 08-23-2018 End: 08-23-2018 Pt evaluation Evelin GILMAN-C Work Phone: [facility] Work Phone: Start: 08-05-2018 End: 08-05-2018 Orders Anitha Nagel PA-C Work Phone: [employer]. Start: 08-02-2018 End: 08-02-2018 Telephone follow-up Anitha Nagel PA-C Work Phone: [employer]. Start: 08-01-2018 End: 08-01-2018 Office outpatient visit 15 minutes Anitha Nagel PA-C Work Phone: [employer] Start: 07-28-2018 End: 07-28-2018 Emergency department patient visit ANITHA NAGEL [facility] Start: 06-22-2018 End: 06-22-2018 Patient encounter procedure Anitha Nagel PA-C Work Phone: [employer] Start: 04-15-2018 End: 04-16-2018 Office outpatient visit 15 minutes Anitha Nagel PA-C Work Phone: [employer] Start: 04-14-2018 End: 04-14-2018 Historical Summary Anitha Nagel PA-C Work Phone: [employer] Start: 03-21-2018 End: 03-21-2018 Office outpatient visit 25 minutes Anitha Nagel PA-C Work Phone: [employer] Start: 10-29-2017 End: 10-29-2017 Orders Anitha Nagel PA-C Work Phone: [employer] Start: 10-28-2017 End: 10-28-2017 Emergency department patient visit ANITHA NAGEL Facility: Start: 10-20-2017 End: 10-20-2017 Patient encounter procedure Anitha Nagel PA-C Work Phone: [employer] Start: 10-01-2017 End: 10-01-2017 Office outpatient visit 15 minutes Anitha Nagel PA-C Work Phone: [employer] Start: 08-25-2017 End: 08-25-2017 Office outpatient visit 15 minutes Anitha Urbaner PA-C Work Phone: [employer] Start: 08-16-2017 End: 08-16-2017 Medication Anitha Nagel PA-C Work Phone: [employer] Start: 03-20-2016 End: 03-20-2016 Office outpatient visit 15 minutes Anitha Nagel PA-C Work Phone: [employer] Start: 03-11-2016 End: 03-12-2016 Patient encounter procedure Anitha Nagel PA-C Work Phone: [employer]. Start: 01-19-2016 End: 01-19-2016 Patient encounter procedure Anitha Nagel PA-C Work Phone: [employer]. Start: 01-14-2016 End: 01-15-2016 Office outpatient visit 15 minutes Anitha Nagel PA-C Work Phone: [employer]. Start: 11-29-2015 End: 11-29-2015 Medication Anitha Nagel PA-C Work Phone: [employer]. Start: 09-13-2015 End: 09-13-2015 Patient encounter procedure Anitha Nagel PA-C Work Phone: [employer]. Start: 09-09-2015 End: 09-09-2015 Office outpatient visit 15 minutes Anitha Nagel PA-C Work Phone: [employer]. Start: 08-19-2015 End: 08-19-2015 Medication Anitha Nagel PA-C Work Phone: [employer]. Start: 07-29-2015 End: 07-29-2015 Office outpatient visit 25 minutes Anitha Nagel PA-C Work Phone: [employer]. Start: 04-23-2015 End: 04-23-2015 Orders Anihta Nagel PA-C Work Phone: [employer]. Start: 04-23-2015 End: 04-23-2015 Office outpatient visit 15 minutes Anitha Nagel PA-C Work Phone: [employer]. Start: 02-05-2015 End: 02-05-2015 Office outpatient visit 15 minutes Anitha Nagel PA-C Work Phone: [employer] Start: 12-01-2014 End: 12-01-2014 Office outpatient visit 15 minutes Anitha Nagel PA-C Work Phone: [employer]. Start: 10-18-2014 End: 10-18-2014 Patient encounter procedure Anitha Nagel PA-C Work Phone: [employer]. Start: 05-04-2014 End: 05-04-2014 Office outpatient visit 25 minutes Anitha Nagel PA-C Work Phone: [employer]. Start: 12-05-2013 End: 12-05-2013 Patient encounter procedure Anitha Nagel PA-C Work Phone: [employer]. Start: 10-25-2013 End: 10-25-2013 Medication Anitha Nagel PA-C Work Phone: [employer]. Start: 09-13-2013 End: 09-13-2013 Medication Anitha Nagel PA-C Work Phone: [employer]. Start: 08-16-2013 End: 08-16-2013 Patient encounter procedure Anitha Nagel PA-C Work Phone: [employer]. Start: 06-14-2013 End: 06-15-2013 Patient encounter procedure Anitha Nagel PA-C Work Phone: [employer]. Start: 04-26-2013 End: 04-26-2013 Medication Anitha Angel PA-C Work Phone: [employer]. Start: 03-17-2013 End: 03-17-2013 Medication Anitha Nagel PA-C Work Phone: [employer]. Start: 03-16-2013 End: 03-16-2013 Medication Anitha Nagel PA-C Work Phone: [employer]. Start: 01-27-2013 End: 01-27-2013 Patient encounter procedure Anitha Nagel PA-C Work Phone: [employer]. Start: 12-23-2012 End: 12-23-2012 Patient encounter procedure Anitha Nagel PA-C Work Phone: [employer] Start: 09-27-2012 End: 09-27-2012 Patient encounter procedure Anitha Nagel PA-C [facility] Phone: [employer] [facility] Start: 10-26-2011 End: 10-26-2011 Patient encounter procedure Anitha Nagel PA-C Work Phone: [employer] [facility] Start: 10-20-2011 End: 10-20-2011 Medication Anitha Nagel PA-C Work Phone: [facility] Start: 09-18-2011 End: 09-18-2011 Patient encounter procedure Anitha Nagel PA-C Work Phone: [employer] [facility] Start: 07-17-2011 End: 07-17-2011 Patient encounter procedure Anitha Nagel PA-C Work Phone: [employer] [facility] Procedures Date Procedure Procedure Detail Performing Clinician Start: 08-13-2023 End: 09-01-2023 Us breast uni real time with image complete Anitha ANDERSONC Work Phone: Start: 03-11-2023 End: 03-19-2023 Us breast uni real time with image limited Anitha GILMAN-C Work Phone: Start: 03-11-2023 End: 03-19-2023 Diagnostic mammography computer-aided detcj bi Anitha Nagel PA-C Work Phone: Start: 10-20-2022 End: 10-20-2022 Ketorolac tromethamine inj Mark Denny MD Work Phone: Start: 09-01-2022 End: 09-01-2022 Ketorolac tromethamine inj Mark Denny MD Work Phone: Start: 04-30-2022 End: 04-30-2022 Destruction benign lesions up to 14 Anitha Nagel PA-C Work Phone: Start: 10-17-2021 End: 10-17-2021 Ketorolac tromethamine inj FLOAT NURSE Start: 12-26-2020 End: 12-26-2020 Ketorolac tromethamine inj Anitha leblanc PA-C Work Phone: Start: 09-10-2020 End: 09-10-2020 Dup-scan lxtr art/artl bpgs uni/lmtd study Yamileth Vail PA-C Work Phone: Start: 08-22-2020 End: 09-04-2020 Xtrnl ecg & 48 hr record scan stor w/r&i Anitha Nagel PA-C Work Phone: Start: 07-26-2020 End: 07-26-2020 Ketorolac tromethamine inj Anitha leblanc PA-C Work Phone: Start: 05-09-2020 End: 05-17-2020 Us lmtd joint/oth nonvasc xtr strux r-t w/img Anitha Nagel PA-C Work Phone: Plan of Treatment Date Care Activity Detail Author Start: 08-19-2023 Basic metabolic panel calcium total BMP w/ GFR (F) (26322) Start: 19-Aug-2023 8:27 Request [employer]. Start: 03-13-2021 Radex hand minimum 3 views Hand x-ray, Right Complete (27031) Start: 13-Mar-2021 Intent [employer] Start: 08-23-2018 End: 08-23-2018 Appointment Appointment [facility] Work Phone: Start: 09-13-2015 Provider Instructions for Treatment Referral for Nutritional Counseling Indication: Obesity Start: 13-Sep-2015 Instruction Type: Provider Instructions for Treatment [employer] Patient Education \[id number]\CPS_ PtEducati on\[id number] [facility] Work Phone: Immunizations Immunization Date Immunization Notes Care Provider Selin zimmerman 12-23-2012 tetanus toxoid, adsorbed Anitha Nagel PA-C Work Phone: [employer] Payers Date Payer Category Payer Unknown [id number] 1984 Unknown [id number] 1984 Unknown [id number] 1959 Unknown [id number] Unknown [employer] Social History Date Type Detail Facility Alcohol Use: Alcohol Use: ; 7 or fewer drinks per week. [employer] Caffeine Use Caffeine Use [employer] Current Work/Study Status: Current Work/Study Status: ; Part-time. [employer]; [employer] Tobacco Use: Tobacco Use: ; Current every day smoker. [employer]. Female [employer] Work Phone: Part-time [employer]; [employer] Work Phone: Smokes tobacco daily [employer]. 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 Author Type: Nurse Practitioner Type: Progress Notes Filed: 09/15/2021 6:38 PM Note Text: Telemedicine Visit - Distance Health Virtual Visit Note Patient seen on [employer] Online platform. Location of patient: [place] History of Present Illness Gretta Ibarra is a 36 year old old female with a history of UTI symptoms for 2 days. Urinary symptoms ROS: Positive for Dysuria, Increase in frequency of urination, Urgency, Sense of incomplete void and Back/Flank pain, Negative for Fevers, Vomiting, Diarrhea, Abdominal pain , Blood in urine and Vaginal itch or discharge +right severe sided flank pain. Pain with walking. Localized to the right side +hx of stone on the right side Chance of : No menstrual period: Any self-treatment attempted: No Number of previous UTI's in last 6 months:0 Number of previous UTI's in last 12 months: 0 PAST MEDICAL HISTORY Diagnosis Date - Endometriosis - Fatty liver - Fibromyalgia - HTN (hypertension) - Migraines - Palpitations - PCOS (polycystic ovarian syndrome) - Thyroid goiter PAST SURGICAL HISTORY Procedure Laterality Date - LAPAROSCOPY DIAGNOSTIC 2013 - PAST SURGICAL HISTORY OF 1998 laparoscopy converted to laparotomy for hemmorhagic left adnexal mass- pathology confirmed torsion of left fallopian tube FAMILY HISTORY Problem Relation Age of Onset - Hypertension Mother AF - Arthritis Mother - other (endometriosis) Mother - Arthritis Father - Diabetes Maternal Grandfather - Heart Brother WPW Social History Tobacco Use - Smoking status: Current Every Day Smoker Packs/day: 0.50 Types: Cigarettes Start date: 2006 - Smokeless tobacco: Never Used Vaping Use - Vaping Use: Former Substance Use Topics - Alcohol use: Not Currently Comment: social - Drug use: No ALLERGIES Allergen Reactions - Septra [Sulfamethox* Rash Current Outpatient Medications Medication Sig - ibuprofen (MOTRIN) 800 mg tablet Take 1 tablet by mouth every 8 hours as needed for pain. - omeprazole (PRILOSEC) 20 mg capsule Take 20 mg by mouth once daily. - Ascorbic Acid (VITAMIN C) 100 mg tablet Take 100 mg by mouth once daily. - lisinopril (ZESTRIL, PRINIVIL) 5 mg tablet Take 5 mg by mouth once daily. - LORazepam (ATIVAN) 0.5 mg tab Take by mouth three times daily as needed. - rizatriptan (MAXALT) 10 mg tablet Take 10 mg by mouth as needed. May repeat in 2 hours if needed Current Facility-Administered Medications Medication Dose Route Frequency - perflutren lipid microspheres 1.3 mL in NaCl (PF) 0.9% 10 mL injection (DEFINITY) INTRAVENOUS DIRECTED PRN - sodium chloride 0.9 % (flush) 10 mL (BD POSIFLUSH) 10 mL INTRAVENOUS DIRECTED PRN Video Exam (Examination performed via Video enabled technology) General Appearance: 36 year old yo female in NAD; not ill or toxic appearing Abdomen: non-tender by self palpation CVA Tenderness: +tenderness right side by self palpation ASSESSMENT/PLAN: 1. Right flank pain - ICD9: 789.09, ICD10: R10.9 (primary diagnosis) - Referral to ED for possible pyelonephritis vs kidney stone 2. Dysuria - ICD9: 788.1, ICD10: R30.0 - Red flags discussed for in person care and follow up - All questions answered Roula Bird APRN.MARGUERITE If you let us know who your primary care provider is, we will send them a notification of today?s visit through our electronic medical records system. Since not all providers have access to our notifications, we strongly encourage you to share the following record of today?s visit with your primary care provider at your next visit. This will help in providing you the best care. If you do not have an established Primary Care physician and would like to continue care with a [facility] Virtual Primary Care physician, please ask your provider to place a Establish Primary Care order. Use [facility] to manage your care, wherever you are, 29/03, on your mobile device or computer. [facility] connects you to [facility] so you can access all your health information in one place and also schedule and request virtual appointments with primary care providers. [facility] Progress note 03-11-2021 Note Date & Type Note Facility 03-11-2021 Note HNO ID: [id number] Author: Beit Dorman APRN.MARGUERITE Service: ? Author Type: Nurse Practitioner Type: Progress Notes Filed: 03/11/2021 3:49 PM Note Text: Telemedicine Visit - Distance Health Virtual Visit Note [facility] platform. Location of patient: [place] History of Present Illness Gretta Ibarra is a 35 year old year old female who presents for the past 1 day with symptoms that are:constant. C/o swollen and painful thumb Woke up with right thumb hurting. There is mild redness and swelling. Feels there is a notch within the joint. Denies s/s of infection or paresthesias. No fevers or chills. No trauma or injury. Nail plat intact Has applied icy hot with lidocaine and has taken 400 mg of Ibuprofen Denies hx of gout Symptoms include: Negative for Fever, Chills/Sweats, Cough, SOB, Wheezing, Nasal congestion, Rhinorrhea, Headache, Sore throat, Fatigue, Nausea, Emesis and Diarrhea Oral intake: eating and drinking Tobacco use: No Sick contacts: No Recent travel: No OTC meds/remedies that patient has tried: see above. PAST MEDICAL HISTORY Diagnosis Date - Endometriosis - Fatty liver - Fibromyalgia - HTN (hypertension) - Migraines - Palpitations - PCOS (polycystic ovarian syndrome) - Thyroid goiter PAST SURGICAL HISTORY Procedure Laterality Date - LAPAROSCOPY DIAGNOSTIC 2013 - PAST SURGICAL HISTORY OF 1998 laparoscopy converted to laparotomy for hemmorhagic left adnexal mass- pathology confirmed torsion of left fallopian tube FAMILY HISTORY Problem Relation Age of Onset - Hypertension Mother AF - Arthritis Mother - other (endometriosis) Mother - Arthritis Father - Diabetes Maternal Grandfather - Heart Brother WPW Social History Tobacco Use - Smoking status: Current Every Day Smoker Packs/day: 0.50 Types: Cigarettes Start date: 2006 - Smokeless tobacco: Never Used Vaping Use - Vaping Use: Former Substance Use Topics - Alcohol use: Not Currently Comment: social - Drug use: No Current Outpatient Medications Medication Sig - omeprazole (PRILOSEC) 20 mg capsule Take 20 mg by mouth once daily. - Ascorbic Acid (VITAMIN C) 100 mg tablet Take 100 mg by mouth once daily. - lisinopril (ZESTRIL, PRINIVIL) 5 mg tablet Take 5 mg by mouth once daily. - LORazepam (ATIVAN) 0.5 mg tab Take by mouth three times daily as needed. - rizatriptan (MAXALT) 10 mg tablet Take 10 mg by mouth as needed. May repeat in 2 hours if needed Current Facility-Administered Medications Medication Dose Route Frequency - perflutren lipid microspheres 1.3 mL in NaCl (PF) 0.9% 10 mL injection (DEFINITY) INTRAVENOUS DIRECTED PRN - sodium chloride 0.9 % (flush) 10 mL (BD POSIFLUSH) 10 mL INTRAVENOUS DIRECTED PRN ALLERGIES Allergen Reactions - Septra [Sulfamethox* Rash Video Exam (Examination performed via Video enabled technology) General appearance: Alert, oriented, pleasant, in NAD :Yes Ill appearing :No Lethargic appearing :No Respiratory distress :No Musculoskeletal: Mild edema and erythema noted at IP joint of right thumb. Nail plate intact. Pain reported by self palpation. No active drainage or streaking noted. ASSESSMENT/PLAN: 1. Thumb pain, right - ICD9: 729.5, ICD10: M79.644 Discussed etiology and rationale for treatment ?Ganglion cyst vs gout. To closely monitor and follow up with worsening s/s that are concerning for infection (I.e fever, streaking, drainage, etc). - CONSULT TO ORTHOPAEDICS - IBUPROFEN 800 MG TABLET-Take with food on a full stomach - Ice - Follow up in 2-3 days if symptoms persist or sooner if symptoms worsen. - Red flags discussed for need for in person care - All questions answered Beti Dorman APRN.MARGUERITE If you let us know who your primary care provider is, we will send them a notification of today?s visit through our electronic medical records system. Since not all providers have access to our notifications, we strongly encourage you to share the following record of today?s visit with your primary care provider at your next visit. This will help in providing you the best care. [facility] Progress note 02-12-2021 Note Date & Type Note Facility 02-12-2021 Note HNO ID: [id number] Author: Moo Rai, DO Service: ? Author Type: Physician Type: Progress Notes Filed: 02/12/2021 9:12 AM Note Text: [facility] Department of [facility] Medicine VIRTUAL VIDEO VISIT ESTABLISHED OUTPATIENT VISIT SERVICE DATE: 02/12/2021 Patient: Gretta Ibarra SERVICE TIME: 8:33 AM : 1985 This is a virtual video visit. It required patient-provider interaction for the medical decision making as documented below. Gretta Ibarra has consented to this video encounter. CHIEF COMPLAINT palpitations HISTORY OF PRESENT ILLNESS Gretta Ibarra is a 35 year old female referred for evaluation for palpitations, previously seen by Dr. Ryan. She was previously intolerant to beta odin due to provoking a raynaud like response. Tilt test 01/10/21 - Overall: The test is negative for syncope. Overall stable blood pressures and heart rates were seen during upright tilt. Echo 11/29/20 CONCLUSIONS: - Technically difficult exam due to body habitus. - Exam indication: SVT - The left ventricle is normal in size. Left ventricular systolic function is normal. EF = 65 ? 5% (2D biplane) Left ventricular diastolic function was not evaluated due to E/A fusion. - The right ventricle is normal in size. Right ventricular systolic function is normal. OSH holter 08/27/20 AVG HR 92 bpm range 50-146 bpm Nursing Intake Gretta Ibarra presents for follow up. She reports she has been feeling well. She states her blood pressure has been good. She continues to notice exercise intolerance. She continued to have brief palpitations at rest, which is an improvement. She continues to have racing heartbeats with moderate activity. She is trying to lose weight and is smoking less. She denies chest pain, shortness of breath, lightheadedness, or syncope. PAST MEDICAL HISTORY Diagnosis Date - Endometriosis - Fatty liver - Fibromyalgia - HTN (hypertension) - Migraines - Palpitations - PCOS (polycystic ovarian syndrome) - Thyroid goiter PAST SURGICAL HISTORY Procedure Laterality Date - LAPAROSCOPY DIAGNOSTIC 2013 - PAST SURGICAL HISTORY OF 1998 laparoscopy converted to laparotomy for hemmorhagic left adnexal mass- pathology confirmed torsion of left fallopian tube FAMILY HISTORY Problem Relation Age of Onset - Hypertension Mother AF - Arthritis Mother - other (endometriosis) Mother - Arthritis Father - Diabetes Maternal Grandfather - Heart Brother WPW Social History Tobacco Use - Smoking status: Current Every Day Smoker Packs/day: 0.50 Types: Cigarettes Start date: 2006 - Smokeless tobacco: Never Used Vaping Use - Vaping Use: Former Substance Use Topics - Alcohol use: Not Currently Comment: social - Drug use: No ALLERGIES Allergen Reactions - Septra [Sulfamethox* Rash CURRENT MEDICATIONSomeprazole (PRILOSEC) 20 mg capsule, Take 20 mg by mouth once daily. Ascorbic Acid (VITAMIN C) 100 mg tablet, Take 100 mg by mouth once daily. lisinopril (ZESTRIL, PRINIVIL) 5 mg tablet, Take 5 mg by mouth once daily. LORazepam (ATIVAN) 0.5 mg tab, Take by mouth three times daily as needed. rizatriptan (MAXALT) 10 mg tablet, Take 10 mg by mouth as needed. May repeat in 2 hours if needed ASSESSMENT: 1. Palpitations - ICD9: 785.1, ICD10: R00.2 (primary diagnosis) 2. Tachycardia - ICD9: 785.0, ICD10: R00.0 3. Other secondary hypertension - ICD9: 405.99, ICD10: I15.8 4. PCOS (polycystic ovarian syndrome) - ICD9: 256.4, ICD10: E28.2 5. Tobacco use - ICD9: 305.1, ICD10: Z72.0 PLAN (Active Outpatient Problems): I reviewed the echo and tilt results with Gretta. We discussed that she does not appear to have a primary disorder of sinus tachycardia like POTS or IST. Her episodes of sinus tach are secondary. She overall is doing well, but her dominant concern is exercise intolerance and fear of exercise due to her fast HRs. I recommend that we have her undergo a stress test to assess functional capacity and serve as a basis for an exercise prescription. She has been diong weight watchers and reports a 6 pound weight loss. I recommend that we refer her to preventative cardiology for an exercise prescription and smoking cessation. I spent more than 15 minutes minutes in total time involved in the management and care of this patient. Moo Rai DO February 10, 2021 2:43 PM As a national referral center for Syncope and related conditions, seeing patients from across the country, we cannot provide work, FMLA, disability or other forms, or cardiac clearance. Please contact the patient's primary care physician or clinical cargo surveyor for the documentation requested. We will provide the office notes from the patient's most recent visit if they have not already been received, and other tests or evaluations performed here can be made available upon request. [facility] Progress note 01-09-2021 Note Date & Type Note Facility 01-09-2021 Note HNO ID: [id number] Author: Anisha Greer RN Service: ? Author Type: ? Type: Progress Notes Filed: 01/09/2021 1:02 PM Note Text: UNIVERSAL PROTOCOL / SAFETY CHECKLIST Procedure to be performed: [facility]: TILT Sign in Communication: CompletedTime Out: Team Confirms the Correct Patient, Correct Procedure, Correct Site and Site Marking, Correct Position (if applicable). Time: 11:33 STAFF: Dr Rai Affirmation of Time Out: YES Sign Out Discussion: Completed Orders placed 11/29/20 by Test done in consult with Dr. Rai. Procedure Start Time: 11:33 Patient fasting for 4 hours: Yes Support stockings taken off for procedure: Yes Pain Assessment: Patient states none Comfort Measures: lights dimmed Pacemaker: No IV Placement: 24 gauge angiocath in right arm cephalic by Baseline: BP 113/75 HR 91 Pre-Max Tilt : 44 degrees 44 min BP 108/74 HR 97 Max Tilt: 45 degrees 45 min BP 109/74 HR 93 Note: Test was stopped due to end of protocol. See Final Report for Diagnosis. IV discontinued at 12:55 by SR. Staff involved in procedure: Anisha Greer RN ; Cristina Andrews RN, Procedure Finish Time: 12:54 [facility] Progress note 01-05-2021 Note Date & Type Note Facility 01-05-2021 Note HNO ID: [id number] Author: Santos Fletcher Provider Service: ? Author Type: Physician Type: Progress Notes Filed: 01/05/2021 4:30 PM Note Text: null (CC[facility]:Not available AMW:[id number]) Visit Summary for GRETTA IBARRA - Gender: Female - Date of : 1985 ( ) Date: [id number] - Duration: 12 minutes Patient: GRETTA IBARRA Provider: Cesar Rivera Patient Contact Information Address [address] [facility]; [place] [phone] Visit Topics Infected spot on leg [Added By: Self - 2021-01-05] Triage Questions Do you have a cough, shortness of breath, difficulty breathing, fever, chills, headache, sore throat, muscles aches, acute change in smell or taste?Answer [No] Have you been in contact with anyone confirmed with COVID 19 or suspected of having COVID 19 within the past 14 days?Answer [No] Do you have any of the following: weak immune system, asthma or chronic lung disease, kidney problems and on dialysis, active cancer, diabetes or heart disease or high blood pressure, HIV or organ transplant? 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 This is important in case of a medical emergency.Answer [[address] [place] [address]] Please enter a number I can contact you in the event we are disconnected. Answer [[phone]] Conversation Transcripts [Notification] Practice Staff, Global Staff, will help you prepare for your visit. She is assisting Family Xenia Toledo.[Practice Staff] Denice, and thank you for connecting. While you are waiting for the doctor, are there any questions I can answer for you about our service? Please contact customer service if you have questions about billing, insurance, or technical issues. Visits work best with a stable WiFi connection, so please make sure you are connected before we begin.[Notification] Practice Staff has left the room.[Notification] You are connected with Family Xenia Toledo.[Notification] Patient has shared 1 file[Notification] GRETTA IBARRA is located in [place].[Notification] GRETTA IBARRA has shared health history...[Notification] Cesar Rivera has added a diagnosis/procedure code.[Notification] Cesar Rivera has added a diagnosis/procedure code.[Notification] Cesar Rivera has added a prescription. Diagnosis Disorder of the skin and subcutaneous tissue, unspecified Value: L98.9 Code: ICD-10-CM Procedures Value: [id number] Code: CPT-4 OL DIG E/M SVC 11-20 MIN Medications Prescribed clindamycin HCl Strength : 150 mg Frequency : Patient Instructions : 1 po qid for 7 days. Take as directed with probiotic. Refills : 0 Instructions to the Pharmacist : Substitutions allowed Amoxil Frequency : Ativan Frequency : lisinopril Frequency : Maxalt Frequency : Provider Notes The caller confirms they are the patient on the registration, and that they [place] calling [place]: VideoHPI: Onset 7 days ago of red irritated spot to her upper right leg, presumed ingrown hair. Soaks have not helped. Now more inflammed and painful.. On Augmentin for sinusitis this past week. No feverPMH: Migraines, possible POTTSMeds: maxault prn Allergies: septra Smokes: No personal or family history of MRSA On video exam the patient appears in no distress. pustular lesion with surrounding erythema. u shaped red area nearby but nontender. No inguinal lymphadenopathy. No obvious streaking. Assessment: Skin lesion. Plan: clindamycinSee a doctor in person at any time If worsening or if not improving as expected over 48 hrs. Discussed the differential diagnosis, risks/benefits for treatment options and when to seek in person care. All questions were addressed. Patient voiced understanding and agreement with plan. 1. If you received a prescription at this visit and you have a question or problem please call [phone] for prescription assistance2. Please print a copy of this note and send it to your regular doctor, or take it to your next visit so it may be included in your medical record3. Please see your primary care provider on an annual basis or more frequently if directed Electronically signed by: Cesar Rivera( ) [facility] Progress note 11-29-2020 Note Date & Type Note Facility 11-29-2020 Note HNO ID: [id number] Author: Moo Rai Service: ? Author Type: Physician Type: Progress Notes Filed: 11/29/2020 6:17 PM Note Text: [facility] Department of Cardiovascular Medicine SECTION OF CARDIAC PACING and ELECTROPHYSIOLOGY OUTPATIENT VISIT DATE November 28, 2020 OUTPATIENT VISIT TYPE NEW PRIMARY CARE PHYSICIAN: Anitha Nagel, [address] [place] [address] REFERRING PHYSICIAN: Moo Rai, DO [address] [facility] [address] CHIEF COMPLAINT: palpitations HISTORY OF PRESENT ILLNESS: Ms. Ibarra is a 35 year old female who presents today for a second opinion regarding her palpitations and tachycardia. She recently saw Dr. Ryan and he indicated that her symptoms have been present for about two years. She had been trialed on a beta odin which helped but seemed to provoke a raynaud-like response. She also has HTN, fibromyalgia, anxiety, migraines, obesity, GERD, goiter, PCOS and smokes. He also reported she had syncope as a child but not recently . She was recently started on cardizem and referred for potential dysautonomia . An echo was ordered not yet completed. She reports significant exercise tolerance, rare dizziness, had syncope as a child when she felt overheated. Reports fatigue. Feels anxious when her heart races. She had a vasovagal episode during a hystersalpingogram a few years ago. ECG 09/24/20 sinus 100 bpm, nonspecific ST abnormality OSH holter 08/27/20 AVG HR 92 bpm range 50-146 bpm Nursing Intake: Orthostatics were performed at her visit with Dr. Ryan in September and showed a HR increase from 104 to 120 with stable BP. She feels her heart rate has been elevated for years. She noted an unprovoked episode of heart racing while at rest in June for one minute, her HR came down and was in the 130s by the time she got to the ED. She was diagnosed with hypertension in July. She began to notice decreased activity tolerance in the summer and prolonged tachycardia with exertion in June/July. She was started on a beta odin for both of these which improved her heart rates. After 3-4 weeks she developed raynauds and was switched to lisinopril. Her blood pressure is stable but her HR remains elevated. Walking from her car to her house will provoke a HR of 125. She has occasional lightheadedness. She has had no syncope since she was young when she got overheated. She has occasional chest pain. She denies shortness of breath, orthopnea, PND, cough, edema, or syncope. She has cut out caffeine and alcohol. She drinks 100-150oz of water a day. She avoids salt due to her hypertension. She does not wear any compression garments. She is not currently active but has a recumbent bike and is eager to increase her activity level. PAST CARDIAC HISTORY: None PAST MEDICAL HISTORY Diagnosis Date - Endometriosis - Fatty liver - Fibromyalgia - HTN (hypertension) - Migraines - Palpitations - PCOS (polycystic ovarian syndrome) - Thyroid goiter PAST SURGICAL HISTORY Procedure Laterality Date - LAPAROSCOPY DIAGNOSTIC 2013 - PAST SURGICAL HISTORY OF 1998 laparoscopy converted to laparotomy for hemmorhagic left adnexal mass- pathology confirmed torsion of left fallopian tube SOCIAL HISTORY Social History Tobacco Use - Smoking status: Current Every Day Smoker Packs/day: 0.50 Types: Cigarettes Start date: 2006 - Smokeless tobacco: Never Used Vaping Use - Vaping Use: Former Substance Use Topics - Alcohol use: Not Currently Comment: social - Drug use: No FAMILY HISTORY Problem Relation Age of Onset - Hypertension Mother AF - Arthritis Mother - other (endometriosis) Mother - Arthritis Father - Diabetes Maternal Grandfather - Heart Brother WPW ALLERGIES: ALLERGIES Allergen Reactions - Septra [Sulfamethox* Rash MEDICATIONS: omeprazole (PRILOSEC) 20 mg capsule, Take 20 mg by mouth once daily. Ascorbic Acid (VITAMIN C) 100 mg tablet, Take 100 mg by mouth once daily. lisinopril (ZESTRIL, PRINIVIL) 5 mg tablet, Take 5 mg by mouth once daily. LORazepam (ATIVAN) 0.5 mg tab, Take by mouth three times daily as needed. rizatriptan (MAXALT) 10 mg tablet, Take 10 mg by mouth as needed. May repeat in 2 hours if needed dilTIAZem (CARDIZEM) 60 mg tablet, Take 1 tablet by mouth three times daily. REVIEW OF SYSTEMS: General, constitutional: Weight loss or gain- No, Fever or chills-No, Weakness-No, Trouble sleeping-yes. Head, Eyes, Ears, Mouth: Headache, head injury-No, Glasses or contact lenses-yes, Pain-No, Impaired vision-No, Decreased hearing-No, Ringing in ears-No, Nose bleeds-No, Dental difficulties-No, Bleeding gums-No, Dentures-No. Neck: Swelling-No, Pain-No, Stiffness-No. Respiratory: Cough-No, Spitting up blood-No, Shortness of breath-No, Wheezing or asthma-No. Mus (more content not included)... [facility] Summary Purpose Family History Cerebrovascular Accident Status:Active Comment s:Paternal Grandfather. Coronary Artery Disease Status:Active Comments :Paternal Grandmother. Diabetes Mellitus Type II Status:Active Commen ts:Maternal Grandfather. Maternal Aunt. Diverticulitis Of Colon Status:Active Comments :Father. Endometriosis Status:Active Comments:Mother. Fibromyalgia Status:Active Comments:Mother. Hip dysplasia Status:Active Comments:Mother. Daughter. Hypertension Status:Active Comments:Mother. Father. Hypothyroidism Status:Active Comments:Sister. Macular degeneration Status:Active Comments:Mo ther. Osteoarthritis Status:Active Comments:Mother. Father. Krishnan Parkinson White Status:Active Comments:dunlap lf brother Advance Directives No Advanced Directives Records FoundNo Advanced Directives Records FoundThere may be information available, but it has not been provided by the sender.No Advanced Directives Records FoundNo Advanced Directives Records FoundNo Advanced Directives Records FoundNo Advanced Directives Records FoundNo Advanced Directives Records Found Chief Complaint Chief Complaint Description Start Date left shoulder pain Preliminary chief co mplaint data, not yet signed by the author as of Instructions Instruction Description Start Date CompletedPatient advised to follow-up with Primary Care Physician for BMI management. Assessments There may be information available, but it has not been provided by the sender. Review of System There may be information available, but it has not been provided by the sender. History of Present Illness There may be information available, but it has not been provided by the sender. Additional Source Comments INFORMATION SOURCE (unrecogn ized section and content) DATE CREATED AUTHOR AUTHOR'S ORGANIZ ATION 08/15/2018 [facility] DATE CREATED AUTHOR AUTHOR'S ORGANIZ ATION 12/21/2018 [facility] DATE CREATED AUTHOR AUTHOR'S ORGANIZ ATION 10/06/2019 [facility] DATE CREATED AUTHOR AUTHOR'S ORGANIZ ATION 07/06/2021 [facility] DATE CREATED AUTHOR AUTHOR'S ORGANIZ ATION 10/29/2021 [facility] DATE CREATED AUTHOR AUTHOR'S ORGANIZ ATION 09/01/2023 [facility] Reason for Visit (unrecogniz ed section and content) FOR RECORDS PERTAINING TO PATIENTS WHO ARE OR HAVE BEEN ENROLLED IN A CHEMICAL DEPENDENCY/SUBSTANCEABUSE PROGRAM, SOME INFORMATION MAY BE OMITTED. This clinical summary was aggregated from multiple sources. Caution should be exercised in using it in the provision of clinical care. This summary normalizes information from multiple sources, and as a consequence, information in this document may materially change the coding, format and clinical context of patient data. In addition, data may be omitted in some cases. CLINICAL DECISIONS SHOULD BE BASED ON THE PRIMARY CLINICAL RECORDS. [facility] [email or web address] [facility]. provides no warranty or guarantee of the accuracy or completeness of information in this document.
== END | disposition home or self-care (01) ==
LOC: LABSPEC 15:52
PROVIDERS: PCP Physician Assistant; Referring Provider Surgery; Visit Provider Surgery
DX: N63.20 Unspecified lump in the left breast, unspecified quadrant (principal)
CPT/HCPCS: 88305

== ENCOUNTER → 2023-11-09 | Outpatient (CLI) | payer OTHER, SELFPAY ==
--- NOTE | 2023-11-09 14:02 | US_ITS ---
INDICATION: Postcoital bleeding, bleeding after intercourse EXAMINATION: Ultrasound US Pelvis Non OB Complete With Transvaginal Imaging TECHNIQUE: Transabdominal and transvaginal pelvic ultrasound was performed. Grayscale, spectral waveform, and color flow Doppler evaluation of the adnexa. COMPARISON: CT abdomen/pelvis dated 10/29/2020 FINDINGS: UTERUS: Anteverted. The uterus measures 8.5 x 4.9 x 4.3 cm. There is no uterine mass. Small nabothian cysts present in the cervix. The endometrial stripe measures 7 mm in AP diameter which is within normal limits. RIGHT OVARY: 3.3 x 2.7 x 2.1 cm. Non-enlarged, normal echogenicity. Physiologic follicles present. There is normal arterial inflow and venous outflow present in the right ovary. LEFT OVARY: 3.2 x 2.1 x 1.2 cm. Non-enlarged, normal echogenicity. Physiologic follicles present. There is normal arterial inflow and venous outflow present in the left ovary. FREE FLUID: None. US/Pelvic w/ Transvaginal IMPRESSION: Unremarkable pelvic ultrasound. Electronically Signed: Alton Sutherland MD at 5:47 EST Reading Location ID and State: [address] [place] [address] Tel , Service support ,
== END | disposition home or self-care (01) ==
LOC: OPUS 14:02
PROVIDERS: PCP Physician Assistant; Referring Provider Obstetrics & Gynecology; Visit Provider Obstetrics & Gynecology
DX: N93.0 Postcoital and contact bleeding (principal)
CPT/HCPCS: 76830; 76856

== ENCOUNTER → 2024-02-01 | Outpatient (CLI) | payer OTHER, SELFPAY | END | disposition home or self-care (01) | LOC: LABSPEC 13:42 | PROVIDERS: PCP Physician Assistant; Referring Provider Dermatology; Visit Provider Dermatology | DX: L72.0 Epidermal cyst (principal) | CPT/HCPCS: 87070; 87077; 87205 ==

== ENCOUNTER 2024-08-09 11:33 | Emergency (ER) | payer OTHER, SELFPAY ==
[2024-08-09 11:34] VITALS: BP 138/85; PULSE 146; RESP 18; TEMP 36.6; O2SAT 98
--- NOTE | 2024-08-09 12:17 | EDS_ITS ---
HPI History of Present Illness Chief Complaint: Dizziness Informant: patient and spouse/S.O. Narrative Narrative: Presents to the ED with spouse while at work a vasovagal event shocklike sensation in her head then lightheaded symptoms. No syncopal episodes. No p rodromal chest pains or palpitations. She had palpitations afterwards currently subsided. Symptoms started few weeks ago having daily episodes while she will have palpitations. A week ago episode vasovagal got sweaty symptoms only lasted briefly and resolved. Today at work when it happened she held onto the table. Yesterday did see her PCP discussed symptoms she had labs drawn yesterday bhavin vergara along with Holter monitor sent to this hospital to be placed. No bloody stools. No recent vomiting or diarrhea. No cough. History of migraines, hypertension controlled with medications. Prior similar symptoms: Yes PFSH PFSH Medical History Obesity Wears contact lenses Anxiety Thyroid disease Arthritis Fatty liver Migraine headache History of diverticulitis Gastric reflux Smoker History of edema History of Holter monitoring History of echocardiogram Hx of tilt table evaluation Cardiology follow-up encounter Hx of sinus tachycardia HTN (hypertension) Palpitation PCOS (polycystic ovarian syndrome) Endometriosis Anxiety Migraine without aura, intractable, without status migrainosus GERD without esophagitis Fatty liver Thyromegaly Acute epigastric pain Intermittent dysphagia Hypothyroidism Home Medications ?Medication ?Instructions ?Recorded ?Last Taken ?Type rizatriptan 10 mg tablet 10 mg PO .X1 PRN PRN Migraine 01/26/14 Unknown History Symptoms lorazepam 0.5 mg tablet 0.5 mg PO DAILY PRN Anxiety 02/02/20 Unknown History lisinopril 5 mg tablet 5 mg PO DAILY 10/24/20 11/11/21 06:30 History Allergy/AdvReac Type Severity Reaction Status Date / Time sulfamethoxazole (From Allergy Hives Verified 08/09/24 11:34 ) trimethoprim (From ) Allergy Hives Verified 08/09/24 11:34 Family History Father Arthritis Diabetes Heart disease High cholesterol Sister Thyroid disorder Surgical History S/P endometrial ablation S/P laparoscopic procedure S/P exploratory laparotomy Social History Smoking Status: Current every day smoker tobacco type: cigarettes second hand exposure: Yes alcohol intake: never substance use type: does not use caffeine: Yes what type of physical activity do you participate in: none frequency: does not exercise seatbelt use: always do you feel safe at home: Yes additional social history: - [place] ROS ROS ED Constitutional Constitutional ED: Denies chills, fever(s) or sweats Eyes Eyes: Denies change in vision ENT ENT ED: Denies dysphagia or sore throat Cardiovascular Cardiovascular: Reports palpitations and racing heartbeat; Denies chest pain or leg edema Respiratory/Chest Respiratory/Chest: Denies cough, dyspnea or dyspnea on exertion Gastrointestinal Gastrointestinal: Denies abdominal pain, diarrhea, nausea or vomiting Genitourinary Genitourinary ED: Denies dysuria, hematuria or urinary frequency Musculoskeletal Musculoskeletal: Denies back pain, extremity pain or neck pain Integumentary Denies rash or wounds Neurologic Neurologic: Denies headache(s), paresthesias or weakness EXAM Physical Exam Const Vital Signs: 08/09/24 11:34 08/09/24 13:33 08/09/24 14:27 Temperature 97.8 F 97.8 F Temperature Source Oral Pulse Rate 146 H 81 84 Respiratory Rate 18 19 H 17 Blood Pressure 138/85 H 124/82 H 134/84 H Blood Pressure Mean 102 96 100 Pulse Ox 98 100 Oxygen Delivery Method Room Air Positive well nourished and well developed General Appearance ED: well developed and NAD HEENT Reports moist mucous membranes normocephalic and atraumatic Eyes EOMs intact bilaterally and conjunctivae normal General Eye ED: Yes normal appearance of both eyes Neck no lymphadenopathy and supple General: Negative for tenderness Chest Wall Chest: Negative for tenderness Resp normal respiratory effort and normal air movement Effort and Inspection: symmetric chest movement; Negative for respiratory distress Cardio regular rate, regular rhythm and no murmurs Peripheral Pulses: pulses 2+ throughout GI normal to inspection, nondistended, normoactive bowel sounds and non-tender Palpation: Negative for guarding or rebound tenderness present Back/Spine no CVA tenderness and no thoracic nor lumbar tenderness Extremity normal to inspection General Extremety ED: Negative for edema or tenderness General Extremity: Negative for edema Neuro oriented x3, CN's II-XII intact bilaterally and no sensory deficits noted Neuro Narrative: No focal neurological deficits. Sensorium / Orientation: awake and alert Skin no rashes or lesions noted and no wounds MDM MDM MDM Narrative Medical decision making narrative: Interventions / MDM: Differential diagnosis: Vasovagal episode, palpitations Diagnosis considered but do not suspect: N/A My EKG interpretation: Sinus rate of 98, no ST or T wave changes QTc 436. Imaging independently reviewed and interpreted by myself: N/A External documents reviewed: N/A Test considered but not ordered:N/A ED course: Patient currently asymptomatic sinus rhythm on the monitor EKG with no acute findings. Further discussion she had labs done outpatient yesterday trying to get results. She had Holter monitor ordered from her PCP yesterday to this hospital. Reach out to respiratory with cardiovascular department with the order being made. 1410: After discussing with the patient in her office labs were resulted which was faxed here. Hemoglobin 14 white count 9.2. Electrolytes normal with a sodium 138 potassium 4.0 creatinine 0.67. Her TSH was 0.53. All normal ranges. She is reassured on the lab findings. Holter monitor was placed in the ED for 48 hours. She will follow-up as an outpatient. All questions were answered. Re-evaluation: stable Disposition discussed with patient/family/significant other: Patient and significant other Case discussed with consulting clinician: N/A This note was generated with [employer] dictation software. It may contain incorrect words, spelling, and punctuation that were not noted in checking the note before signing. Discharge Plan Triage Chief Complaint: Dizziness ED Provider: Vickey Ortiz Dx/Rx/DC Orders Clinical Impression: Palpitations, Vasovagal episode Instructions: ED Palpitations, ED Near-Fainting- Vagal Reaction Prescriptions: No Action lorazepam 0.5 mg tablet 0.5 mg PO DAILY PRN (Reason: Anxiety) lisinopril 5 mg tablet 5 mg PO DAILY rizatriptan 10 MG tablet 10 mg PO .X1 PRN PRN (Reason: Migraine Symptoms) Primary Care Provider: Cary Nagel Referrals: Cary Nagel PA [Primary Care Provider] - 1 Week Activity Restrictions/Additional Instructions: Your labs were obtained and reviewed with you with normal blood counts electrolytes and thyroid screening. Maintain Holter monitor 48 hours. If you develop recurrent symptoms prolonged and worsens, return to ED for reevaluation. Print Language: Somali Disposition Disposition: Home, Self Care Discharge Date/Time: 08/09/24 14:28
--- NOTE | 2024-08-09 12:43 | EKG12_ITS ---
Test Reason : DIZZINESS Blood Pressure : */* mmHG Vent. Rate : 98 BPM Atrial Rate : 98 BPM P-R Int : 138 ms QRS Dur : 72 ms QT Int : 342 ms P-R-T Axes : 49 35 37 degrees QTcB Int : 436 ms Normal sinus rhythm with sinus arrhythmia Nonspecific ST abnormality Abnormal ECG Confirmed by Ryhs Fuentes ([id number]), fan mail editor LUZ ZUNIGA ([id number]) on 08/10/2024 1:05:12 PM Referred By: Vickey Ortiz Confirmed By: Rhys Fuentes
[2024-08-09 13:33] VITALS: BP 124/82; PULSE 81; RESP 19
[2024-08-09 14:27] VITALS: BP 134/84; PULSE 84; RESP 17; TEMP 36.6; O2SAT 100
== END 2024-08-09 14:28 | disposition home or self-care (01) ==
PROVIDERS: Emergency Provider Emergency Medicine; PCP Physician Assistant; Referring Provider Emergency Medicine; Visit Provider Emergency Medicine
DX: R42 Dizziness and giddiness (principal); R55 Syncope and collapse; I10 Essential (primary) hypertension; R00.2 Palpitations; Z79.899 Other long term (current) drug therapy; F41.9 Anxiety disorder, unspecified; G43.909 Migraine, unspecified, not intractable, without status migrainosus; F17.210 Nicotine dependence, cigarettes, uncomplicated
CPT/HCPCS: 93005; 99282

== ENCOUNTER → 2024-08-09 | Outpatient (CLI) | payer OTHER, SELFPAY | END | disposition home or self-care (01) | LOC: CVS 12:48 | PROVIDERS: PCP Physician Assistant; Referring Provider Specialist; Visit Provider Emergency Medicine | DX: Z00.00 Encounter for general adult medical examination without abnormal findings (principal) ==

== ENCOUNTER → 2024-11-06 | Outpatient (CLI) | payer BC, SELFPAY ==
--- NOTE | 2024-11-06 | CER_PTH ---
PATIENT: GRETTA MCMAHON LOC: [facility] #:[id number] AGE/SX: 39/F ROOM: RE11/06/[address]: Dr. Regina Quesada DO : 1985 BED: DIS: 11/06/2024 SPEC #: [id number] RECD: 11/06/24 12:06 STATUS: LARA ELVIN #: [id number] PATRICA: 11/06/24 00:[address]: Regina Quesada DEPT: SURGICAL PATHOLOGY RECD BY: Dayo López ENTERED: 11/06/24 12:14 SP TYPE: CERV OTHR DR: KALINA Jonas Tissues: POLYP Procedures: Surgery Specimen Level V HEADER OPERATION: Polypectomy PRE-OP DIAGNOSIS: Cervical polyp TISSUE SUBMITTED: Cervical polyp MICROSCOPIC DIAGNOSIS Cervix, polyp, biopsy: * Benign endocervical mucosal polyp, inflamed, with squamous metqaplasia. MICROSCOPIC DESCRIPTION Slides are reviewed. GROSS DESCRIPTION Received in formalin labeled with the patient's name Gretta Mcmahon and is not designated is a pink-ogden irregular shaped smooth soft tissue fragment with attached mucus that is 1.1 x 0.6 x 0.2 cm. Totally submitted.J11/06/2004 TC: CPT: 55140
[2024-11-09 10:08] LABS: HPV APTIMA, High Risk Negative (Negative)
== END | disposition home or self-care (01) ==
LOC: LABSPEC 09:59
PROVIDERS: PCP Physician Assistant; Referring Provider Obstetrics & Gynecology; Visit Provider Obstetrics & Gynecology
DX: N84.1 Polyp of cervix uteri (principal); Z12.4 Encounter for screening for malignant neoplasm of cervix
CPT/HCPCS: 87624; 88175; 88305; 88307; G0145

== ENCOUNTER → 2024-12-01 | Outpatient (CLI) | payer BC, SELFPAY ==
--- NOTE | 2024-12-01 07:45 | BI_ITS ---
EXAM: SCRN MAMM (CAD)W/JERRY BILAT 12/01/2024 CLINICAL HISTORY: F, Age 39 y/o , BREAST CANCER SCREENING TECHNIQUE: Bilateral screening digital breast tomosynthesis with 2D and 3D images. Computer aided detection. COMPARISON: Prior exam(s) dated 03/19/2023, 08/31/2023. FINDINGS: TISSUE DENSITY: The breast tissue is composed of scattered area of fibroglandular density. Bilateral Breast Mammographic Findings: There is an oval circumscribed mass with an associated biopsy marker clip in the central outer left breast at middle depth, this has corresponding benign pathology of fibroadenoma. Otherwise, there are no significant masses, calcifications or other abnormalities are identified. BI/SCRN MAMM (CAD)W/JERRY BILAT IMPRESSION: Right Breast: BIRADS 1 NEGATIVE. Left Breast: BIRADS 2 BENIGN FINDING. OVERALL FINAL ASSESSMENT: BIRADS 2 BENIGN FINDING. RECOMMENDATION: Routine annual follow-up in 1 Year A letter with findings and recommendations will be mailed to the patient. Reading Location: [id number]
== END | disposition home or self-care (01) ==
LOC: OPBI 07:45
PROVIDERS: PCP Physician Assistant; Referring Provider Obstetrics & Gynecology; Visit Provider Obstetrics & Gynecology
DX: Z12.31 Encounter for screening mammogram for malignant neoplasm of breast (principal)
CPT/HCPCS: 77063; 77067

== ENCOUNTER → 2025-03-22 | Outpatient (CLI) | payer BC, SELFPAY | END | disposition home or self-care (01) | LOC: LABSPEC 11:49 | PROVIDERS: PCP Physician Assistant; Visit Provider Nurse Practitioner Family | DX: N89.8 Other specified noninflammatory disorders of vagina (principal) | CPT/HCPCS: 87070; 87205 ==